=== PATIENT | female | born 1980 | race Caucasian/White ===

== ENCOUNTER 2022-06-25 15:39 | Outpatient (CLI) | payer OTHER, SELFPAY ==
--- NOTE | 2022-06-25 16:00 | CRLHL7_ITS ---
For Patients: As a result of the Century Cures Act, medical imaging exams and procedure reports are released immediately into your electronic medical record. You may view this report before your referring provider. If you have questions, please contact your health care provider. INDICATION: Headache. TECHNIQUE: Noncontrast CT images acquired through the brain. COMPARISON: None. FINDINGS: The ventricles and sulci are within normal limits for patient age. No mass effect or midline shift. The zendejas-white differentiation is maintained. No acute intracranial hemorrhage or pathologic extra-axial fluid collection. The globes are symmetric. The calvarium is intact. Very small right maxillary sinus retention cyst or polyp. The mastoid air cells are clear. IMPRESSION: No acute intracranial hemorrhage or mass effect. Please note that all CT scans at this facility use dose modulation, iterative reconstruction, and/or weight-based dosing when appropriate to reduce radiation dose to as low as reasonably achievable. Dictated by Fabián Montanez MD @ 06/25/2022 4:28:26 PM (Electronically Signed)
== END 2022-06-25 15:40 | disposition home or self-care (01) ==
PROVIDERS: PCP Family Medicine; Visit Provider Family Medicine
DX: F51.9 Sleep disorder not due to a substance or known physiological condition, unspecified (principal); F07.81 Postconcussional syndrome
CPT/HCPCS: 70450

== ENCOUNTER 2022-06-26 21:23 | Emergency (ER) | payer OTHER, SELFPAY ==
[2022-06-26 21:32] VITALS: BP 129/69; PULSE 86; RESP 18; TEMP 36.4; O2SAT 95; BMI 31.1
--- NOTE | 2022-06-26 22:14 | ED.GENADULT ---
HPI - General Adult General Time Seen by Provider: 22:14 Date Seen: 06/26/22 Chief complaint: Headache/Migraine Stated complaint: Increased pain behind eyes and bruising on eyes Time Seen by Provider: 06/26/22 21:38 Source: patient and family Mode of arrival: ambulatory Limitations: no limitations History of Present Illness HPI narrative: 42-year-old female who comes in today with headache and eye pain after head injury a couple weeks ago. He patient at the top of her head on a trailer. No loss of consciousness but prominent swelling in the area. She has continued to have some headaches and memory problems with this although seems to be getting better. However today she noticed some bruising around her eyes and also some shooting pain in her head. She had a head CT yesterday which I reviewed and is negative for acute findings. She called the nurse line and was told to come the emergency department. She denies any blurry vision or double vision, says it hurts to move her eyes from side to side especially with left gaze. She does have some photosensitivity. No fluid from the nose or ears. Related Data Home Medications Medication Instructions Recorded Confirmed escitalopram oxalate 20 mg tablet 20 mg PO QDAY 10/11/21 06/17/22 (Lexapro) norethindrone acetate 1 mg-ethinyl 1 tab PO QDAY 10/11/21 06/17/22 estradiol 20 mcg tablet (Junel) Previous Rx's Medication Instructions Recorded semaglutide 3 mg tablet (Rybelsus) 3 mg PO QDAY 30 days #30 tabs 10/11/21 phentermine 15 mg capsule 15 mg PO QDAY #30 caps 11/19/21 gabapentin 100 mg capsule 100 mg PO TID #90 caps 06/17/22 (Neurontin) Allergies Allergy/AdvReac Type Severity Reaction Status Date / Time Sulfa (Sulfonamide Allergy Unknown unknown Verified 06/17/22 15:02 Antibiotics) latex Allergy Verified 06/26/22 21:32 Review of Systems Status of ROS: Reports: 10 or more systems reviewed and unremarkable except as noted in History and below [facility] Medical History (Updated 06/17/22 @ 15:42 by Deacon Jones MD) Obesity (BMI 30.0-34.9) ?E66.9 - Obesity, unspecified (ICD-10) Social History Smoking Status: Never smoker Do you use any of these nicotine containing products: None Second hand tobacco smoke exposure: No How often do you have a drink containing alcohol: 2-3 times a week How many standard drinks containing alcohol do you have on a typical day: 1 or 2 How often do you have six or more drinks on one occasion: Never AUDIT-C Alcohol total score: 3 Non-prescribed substance use: denies use service: No Exam Narrative: Exam Narrative: General: Well-developed and well-nourished, no acute distress Head: Atraumatic and normocephalic Eyes: Pupils are equal reactive, extraocular motions intact, conjunctiva clear. Very mild ecchymosis medially bilaterally with mild swelling of the or nasal bridge. Mild tenderness of the right parietal area with mild boggy swelling in this area ENT: External nose and ears are normal, posterior pharynx without erythema or exudate Neck: No midline cervical tenderness, full spontaneous range of motion the neck, trachea midline, no adenopathy Heart: Regular rate and rhythm no murmurs or thrills Lungs: Clear to auscultation bilaterally without wheezes or crackles Abdomen: Soft, nontender, nondistended with active bowel sounds Musculoskeletal: No tenderness, deformity, or edema Neurologic: Awake, alert, and oriented x3, no gross focal neurologic deficits, cranial nerves intact as tested Psych: Mood and affect are appropriate Skin: No rashes Const: Vital Signs, click to edit/add: Vital Signs - 24 hr 06/26/22 21:32 Temperature 97.6 F Pulse Rate [Pulse Oximeter] 86 Respiratory Rate 18 Blood Pressure [Ri ght Upper Arm] 129/69 Pulse Oximetry 95 Oxygen Delivery Me thod Room Air Course Course Hospital Course: Patient seen and examined, prior records reviewed. Patient presents today after head injury sustained a couple days ago with some bruising around the eyes as well as shooting pain on the head. On exam, neurologically intact. External ocular movements are intact and pupils are equal and reactive. No evidence for basilar skull fracture on CT scan done yesterday, also no hemotympanum. Bruising around the eyes may be from settling of hematoma of the scalp from a prior injury, also consider subgleal hematoma that is resolving. Discussed post concussive syndrome and warning signs. Discussed follow-up with concussion clinic. Patient stable for discharge. Vital Signs Vital signs: Initial Vital Signs Temperature 97.6 F 06/26/22 21:32 Temperature Source Temporal Artery Scan 06/26/22 21:32 Pulse Rate 86 06/26/22 21:32 Pulse Rhythm Regular 06/26/22 21:32 Respiratory Rate 18 06/26/22 21:32 Blood Pressure 129/69 06/26/22 21:32 Blood Pressure Mean 89 06/26/22 21:32 Pulse Oximetry 95 06/26/22 21:32 Oxygen Delivery Method Room Air 06/26/22 21:32 Vital Signs Temperature 97.6 F 06/26/22 21:32 Pulse Rate 86 06/26/22 21:32 Respiratory Rate 18 06/26/22 21:32 Blood Pressure 129/69 06/26/22 21:32 Pulse Oximetry 95 06/26/22 21:32 Oxygen Delivery Method Room Air 06/26/22 21:32 Temperature 97.6 F 06/26/22 21:32 Pulse Rate 86 06/26/22 21:32 Respiratory Rate 18 06/26/22 21:32 Blood Pressure 129/69 06/26/22 21:32 Pulse Oximetry 95 06/26/22 21:32 Oxygen Delivery Method Room Air 06/26/22 21:32 Medical Decision Making Medical Records Medical records reviewed: Yes I reviewed the patient's medical records Lab Data Lab results reviewed: Yes I reviewed the patient's lab results Discharge Plan Discharge Prescriptions: No Action norethindrone ac-eth estradiol [04/12 ()] 1-20 mg-mcg tablet 1 tab PO QDAY escitalopram oxalate [Lexapro] 20 mg tablet 20 mg PO QDAY Rybelsus 3 mg tablet 3 mg PO QDAY 30 Days Qty: 30 1RF gabapentin [Neurontin] 100 mg capsule 100 mg PO TID Qty: 90 0RF phentermine 15 mg capsule 15 mg PO QDAY Qty: 30 1RF Rx Instructions: must administer 2 hours after breakfast Follow Up/Referrals: Deacon Jones MD [Primary Care Provider] -
--- OUTSIDE RECORDS SUMMARY | 2022-06-26 22:52 | XMS_ITS | Continuity of Care Document ---
Author Name Unknown Organization [facility] Address [address] [address] [place] [address] Phone Care Team Providers Care Welfare Eligibility Worker Name Role Phone Mal ALEXANDRA, Pierre Unavailable Unavailable Allergies, Adverse Reactions, Alerts Substance Reaction Status Criticality Sulfa (Sulfonamide Antibiotics) Unknown Active No Information latex Swelling Active No Information trimethoprim Hives Active No Information sulfamethoxazole Hives Active No Informat ion Medications Medication Instructions Dosage Effective Dates (start - stop) Status Comments hyoscyamine 0.125 mg sublingual tablet take 1 Tablet by Sublingual route every 4 hours as needed 1 Tablet - Active keep on file Claritin 10 mg tablet take 1 tablet by oral route every day as needed - Active Lexapro 20 mg tablet take 1 tablet by oral route every day 20 MG - Active 04/12 (21) 1 mg-20 mcg tablet take 1 tablet by oral route every day 1.00 tablet - Active Procedures Procedure Date Offic/outpt E&m Estab Low-mod 0 Offic/outpt E&m New Mod-in Colonoscopy Flex; W/bx 1/mx Level Iv-surg Path Gross/micro 17 Offic/outpt E&m New Mod-hi Offic Cons New/estab Mod Routine Serum Collection [id number] Advance Directives Directive Yes / No Effective Date File Name No Information Encounters Encounter Description Practice Location Reason(s) For Visit Diagnoses Date Provider Providers Copied on Encounter [facility], [address] [address], [place], [place], [id number], [place] tel:[phone] [facility] No Information 2 Mal Jay. [address] [facility] [address], [place], [place], [address] , [place]. tel: [phone] Offic/outpt E&m Estab Low-mod [facility], [address] [address], [place], [place], [address], [place] tel:[phone] [facility] GI Symptoms or Concerns (chief complaint) Lower abdominal painDietary counseling and surveillance 0 Hasmukh Willett . [address] [facility], [address], [place], [place], [address] , [place]. tel: [phone] Referring Provider: Referral Self. [facility], [address] [address], [place], [place], [address], [place] tel:[phone] [facility] No Information 0 Medhat Byrnes. [address] [facility], [address], [place], [place], [address] , [place]. tel: [phone] Offic/outpt E&m New Mod-hi [facility], [address] [address], [place], [place], [address], [place] tel:[phone] [facility] GI Symptoms or Concerns (chief complaint) Right lower quadrant abdominal pain 0 Hasmukh Willett . [address] [facility], [address], [place], [place], [address] , [place]. tel: [phone] Referring Provider: Referral Self. [facility], [address] [address], [place], [place], [address], [place] tel:[phone] [facility] No Information 0 Mal Jay. [address] [facility] [address], [address], [place], [place], [address] , [place]. tel: [phone] [facility], [address] [address], [place], [place], [address], [place] tel:[phone] [facility] Hemorrhage of anus and rectumInternal hemorrhoidColorec lina polyp detected on colonoscopyFamily history of colonic polypsBenign neoplasm of sigmoid colonFamily history of colonic polypsHemorrhage of anus and rectumOther hemorrhoids 7 Hasmukh Willett . [address] [facility], [facility] [address], [place], [place], [address] , [place]. [phone] Referring Provider: Referral Self. Offic/outpt E&m New Mod-hi [facility], [address] [address], [place], [id number], [place] tel:[phone] [facility] GI Symptoms or Concerns (chief complaint) Rectal bleedingFamily history of colonic polypsDietary counseling and surveillance 7 Hasmukh Willett . [address] [facility], [facility] [address], [place], [place], [address] , [place]. [phone] Referring Provider: Referral Self. Offic Cons New/estab Mod [facility], [address] [address], [place], [address], [place] tel:[phone] [facility] Abdominal pain (chief complaint) Rectal bleeding (chief complaint) Change In Bowel Habits 0 Jhonathan Baker. [address] [facility], [facility] [address], [place], [place], [address] , [place]. [phone] Referring Provider: Bhargavi Noel MD R, [address] [facility] [address], [place], [address]. tel:[phone] Family History Family Member Type Diagnosis Age At Onset Son Problem (finding) asthma Brother Problem (finding) ulcerative colitis Brother Problem (finding) Crohn's disease First degree family history Problem (finding) Crohn's Father Problem (finding) Colon polyps Mother Problem (finding) Alive and well Immunizations Vaccine Date Status Comments Seasonal, quadrivalent, recombinant, injectable influenza vaccine, preservative free administered Note: [facility] bi-direct ional interface ; Source: Other Registry Influenza administered Note: [facility] bi-d irectional interface ; Source: Other Registry Afluria Qd administered Note: [facility] bi-directional interface ; Source: Other Registry Fluzone Quad 6mo or older administered Note: [facility] bi-direct ional interface ; Source: Other Registry Afluria Qd administered Note: [facility] bi-directional interface ; Source: Other Registry Fluzone Quad 6mo or older administered Note: [facility] bi-direct ional interface ; Source: Other Registry Influenza, injectable, quadrivalent, preservative free, 3 yrs or older administered Note: Invalid docum ented admin date was . ; Source: Other Provider Afluria Qd administered Note: [facility] bi-directional interface ; Source: Other Registry Fluzone Quad 6mo or older administered Note: [facility] bi-direct ional interface ; Source: Other Registry Influenza, seasonal, injectable administe red Note: [facility] bi- directional interface ; Source: Other Registry Payers Payer name Insurance type Covered constitution party ID Authoriza timaira(s) [employer] [facility] [id number] Social History Type Description Quantity Date Captured Comments Sex Female Smoking Status No Information Chief Complaint And Reason For Visit No Information Reason For Referral Reason For Referral No Information Plan Of Treatment Date Type Action Status Goal Lifestyle education regardin g diet completed Goal Lifestyle education regardin g diet completed Referral Ordered: MRI Enterography WITHOUT And WITH Contrast Appointment date/timeframe: 12/21/2019 ordered Referral Ordered: follow-up visit 2 Months Appointment date/timeframe: 2 Months ordered History Of Present Illness Encounter Date Complaint History Of Prese nt Illness GI Symptoms or Concerns This is a 40-year-old woman who presents in followup. I last saw her in November. She has been experiencing some new lower abdominal pain, particularly on the right side. She also experiences some intermittent rectal bleeding. She has a family history of ulcerative colitis and was concerned for inflammatory disease. Prior colonoscopy in 2016 had shown a polyp and internal hemorrhoids. We had discussed whether or not to proceed with a colonoscopy. However, since the symptoms were so episodic, we elected to proceed with MR enterography to evaluate for inflammatory disease in the terminal ileum. Thankfully, this study was normal. Interestingly, she has had some improvement when she uses hyoscyamine antispasmodic. She has also started a keto diet and lost 20 pounds in the past 1 or 2 months. She notices that the pain typically increases before passage of the stool. If she skips a day without having a bowel movement, this is not bothersome to her. Symptoms seem to worsen with bro GI Symptoms or Concerns This is a 39-year-old woman, who presents as a self-referral for new abdominal symptoms. She has a family history of ulcerative colitis in her brother. I have seen her in the past for some rectal bleeding attributed to hemorrhoids. She reports having intermittent abdominal symptoms overtime. More recently, she has felt excruciating pain in the right lower quadrant. This occurs episodically, about once every 1 to 2 months. She has milder episodes about every 3 weeks. She has not identified a clear dietary trigger. Sometimes she feels it can occur if she has not had a good bowel movement the day before. Typically, the episodes are so severe that she has near-syncope and then hot sweats. She will often pass a solid stool followed by repetitive diarrhea. There can be a sense of pressure and pain in the rectal area as well. She likens her symptoms to labor pains, and she has not found there to be a specific diet that helps. She tried a gluten-free diet, which was ineffective. 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 This happened one week ago. She had three days of bleeding that was painless. There was over one spoonful of blood each time she had a bowel movement. The water was colored with blood as well. She denies any recent trauma to the area or perianal symptoms. She has had intermittent small amounts of blood in the past with wiping, but nothing like what she experienced last week. There is a dull discomfort in her abdomen. There is no change in stool caliber. The discomfort can be on and off over time and does not correlate with eating or stooling. She feels a little tired. She reports normal labs in early March, but none performed recently. She denies any joint swelling, although has had occasionally papules on her abdomen and then over her hand joints, that come and go over time. Her mother had colon polyps diagnosed at age 62. Her brother was diagnosed with ulcerative colitis and had a total proctocolecto Functional Status Date Functional Assessmen t No Information Instructions Date Instruction Additional Infor maite I would like her to journal foods and abdominal symptoms together with bowel habits to see if there any obvious trends. We will continue hyoscyamine antispasmodic. We discussed ways of maintaining her lower weight when she stops the keto diet. This includes developing an exercise regimen for strengthening, to boost metabolic rate, and working on some problematic behaviors that she may have at home with regard to eating. We agreed to follow up in a couple of months to review her progress. Certainly, if she has worsening symptoms or recurrent bleeding, we should consider another colonoscopy. Related to Lower abdominal pain Lifestyle education regarding di et Related to Dietary counseling and surveillance I would like to perf orm an MR enterography to evaluate for Crohn''s disease in the terminal ileum. She is long and young and I would prefer to avoid radiation exposure. This will help to evaluate for inflammatory disease and also give some degree of imaging of her sacroiliac joint. In the meanwhile, we will initiate a trial of hyoscyamine antispasmodic to see if that is helpful at aborting attacks of pain. She will also journal food intake, stools, and abdominal symptoms to see if there is no obvious trend. I would like to see her in followup in 2 months. Related to Right lower quadrant abdominal pain High Fiber Diet Related to Inter nal hemorrhoid Colon Cancer Prevention Related to Internal hemorrhoid Colon Polyps Related to Inter nal hemorrhoid Hemorrhoids Related to Inter nal hemorrhoid We will proceed with colonoscopy to include evaluation of the terminal ileum. We discussed the possible need for sigmoidoscopy, but given the chronic nature of low-grade abdominal symptoms, we agreed for a full colon evaluation, especially with a family history of polyps. If there is inflammatory disease found on exam, then I would definitely recommend followup in clinic. If there are hemorrhoids, she has the choice to consider hemorrhoid banding, although this is not required either. Further recommendations will follow the above. Related to Rectal bleeding Lifestyle education regarding di et Related to Dietary counseling and surveillance Colonoscopy Hemorrhoids Related to Recta l bleeding Hemorrhoid Banding Related to Re ctal bleeding Assessments Type Assessment Date No Information Patient Care Teams Name Effective Dates (start - stop) Status Members No Information
--- OUTSIDE RECORDS SUMMARY | 2022-06-26 22:52 | XMS_ITS | Continuity of Care Document ---
Author Name Unknown Organization [facility] Address [address] [address] [place] [address] Phone Care Team Providers Care Head Pumper Name Role Phone Mal ALEXANDRA, Pierre Unavailable [...] E&m Estab Low-mod 0 Offic/outpt E&m New Mod-nv Colonoscopy Flex; W/bx 1/mx Level Iv-surg Path Gross/micro 17 Offic/outpt E&m New Mod-hi Offic Cons New/estab Mod Routine Serum Collection [id number] Advance Directives Directive Yes / No Effective Date File Name No Information Encounters Encounter Description Practice Location Reason(s) For Visit Diagnoses Date Provider Providers Copied on Encounter [facility], [address] [address], [place], [place], [address], [place] tel:[phone] [facility] No Information 2 Mal Jay. [address] [facility] [address], [place], [place], [address] , [place]. tel: [phone] Offic/outpt E&m Estab Low-mod [facility], [address] [address], [place], [place], [address], [place] tel:[phone] [facility] GI Symptoms or Concerns (chief complaint) Lower abdominal painDietary counseling and surveillance 0 Hasmukh Willett . [address] [facility], [address], [place], [place], [address] , [place]. tel: [phone] Referring Provider: Referral Self. [facility], [address] [address], [place], [place], [address], [place] tel:[phone] [facility] No Information 0 Medhat Byrnes. [address] [facility], [address], [place], [place], [address] , [place]. tel: [phone] Offic/outpt E&m New Mod-hi [facility], [address] [address], [place], [place], [address], [place] tel:[phone] [facility] GI Symptoms or Concerns (chief complaint) Right lower quadrant abdominal pain 0 Hasmukh Willett . [address] [facility], [address], [place], [place], [address] , [place]. tel: [phone] Referring Provider: Referral Self. [facility], [address] [address], [place], [place], [address], [place] tel:[phone] [facility] No Information 0 Mal Jay. [address] [facility] [address], [address], [place], [place], [address] , [place]. tel: [phone] [facility], [address] [address], [place], [place], [address], [place] tel:[phone] [facility] Hemorrhage of anus and rectumInternal hemorrhoidColorec lina polyp detected on colonoscopyFamily history of colonic polypsBenign neoplasm of sigmoid colonFamily history of colonic polypsHemorrhage of anus and rectumOther hemorrhoids 7 Hasmukh Willett . [address] [facility], [facility] [address], [place], [place], [address] , [place]. [phone] Referring Provider: Referral Self. Offic/outpt E&m New Mod-hi [facility], [address] [address], [place], [id number], [place] tel:[phone] [facility] GI Symptoms or Concerns (chief complaint) Rectal bleedingFamily history of colonic polypsDietary counseling and surveillance 7 Hasmukh Willett . [address] [facility], [facility] [address], [place], [place], [address] , [place]. [phone] Referring Provider: Referral Self. Offic Cons New/estab Mod [facility], [address] [address], [place] [address], [place] tel:[phone] [facility] Abdominal pain (chief complaint) Rectal bleeding (chief complaint) Change In Bowel Habits 0 Jhonathan Baker. [address] [facility], [facility] [address], [place], [place], [address] , [place]. [phone] Referring Provider: Bhargavi Noel MD R, [address] [facility] [address], [place], [address]. 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 This happened [...]
== END 2022-06-26 22:50 | disposition home or self-care (01) ==
LOC: ED 22:50
PROVIDERS: Emergency Provider Family Medicine; PCP Family Medicine
DX: F07.81 Postconcussional syndrome (principal)
CPT/HCPCS: 99283

== ENCOUNTER 2022-07-24 09:00 | Outpatient (CLI) | payer OTHER, BC, SELFPAY ==
--- NOTE | 2022-07-24 09:15 | CRLHL7_ITS ---
For Patients: As a result of the Century Cures Act, medical imaging exams and procedure reports are released immediately into your electronic medical record. You may view this report before your referring provider. If you have questions, please contact your health care provider. EXAMINATION: MRI BRAIN DATE: 07/24/2022 HISTORY: Patient with head trauma, concussion. TECHNIQUE: Multi-sequence, multiplanar MRI examination of the brain was performed. COMPARISON: CT 06/25/2022 FINDINGS: There is no restricted diffusion in the brain to indicate the presence of acute ischemia. The T2 and FLAIR images are normal. The ventricular size is normal. The orbits are unremarkable. The paranasal sinuses are unremarkable. The mastoid air cells are clear. The calvarium is unremarkable. IMPRESSION: Normal brain MRI. Dictated by: Thomas Romo MD @ 07/24/2022 21:21:11 (Electronically Signed)
== END 2022-07-24 09:01 | disposition home or self-care (01) ==
LOC: MRI 09:02
PROVIDERS: PCP Family Medicine; Visit Provider Family Medicine
DX: F07.81 Postconcussional syndrome (principal); R51.9 Headache, unspecified
CPT/HCPCS: 70551

== ENCOUNTER 2023-04-25 09:00 | Outpatient (RCR) | payer OTHER, BC, SELFPAY | END 2023-08-23 23:59 | disposition home or self-care (01) | PROVIDERS: PCP Family Medicine; Visit Provider Orthopaedic Surgery | DX: M54.2 Cervicalgia (principal); R51.9 Headache, unspecified; I51.9 Heart disease, unspecified; Z51.89 Encounter for other specified aftercare | CPT/HCPCS: 97032; 97110; 97112; 97140; 97162; 97535 ==

== ENCOUNTER 2023-05-02 10:45 | Outpatient (RCR) | payer OTHER, BC, SELFPAY ==
--- NOTE | 2022-08-29 09:30 | PT.OPDN ---
PT Alejandrina Outpatient Daily Note PT SANCHEZ Outpatient Daily Note Start: 07/02/22 11:19 Freq: Status: Active Protocol: Document 08/27/22 12:06 BMS (Rec: 08/27/22 23:40 BMS [id number]) E-signed By Era Liz, PT PT OP Daily Progress Note Visit Information Note Type Daily Note,Recert/Progress Note Visit Number [id number] Insurance Information Recert Due Date 09/29/22 Insurance Name Workman's Comp Insurance Information/Comments [place] risk Medical Diagnosis postconcussional syndrome F07. 81 Treating Diagnosis concussion F07.81 cervicalgia M54.2 headache R51.9 vestibular dysfunction H81.93 Referring MD Karen ALEXANDRA Precautions Treatment Precautions/Contraindications hx anxiety, seasonal depression Objective Other/Pertinent Objective vitals checks Seated 123/72 SpO2 96%, HR 79 Treadmill self selected speed 2.4-3.5 mph 2:40 symptom BONILLA 3/ 10, 114/75, recovered to 118/ 75 BONILLA to 0-1/10, Resume x 3:17 increased BONILLA 6/ 10 brain feels full. Inc HR to 109, 111/69 SpO2 94% recovery: seated to 125/75, SpO2 97%, HR 82 Patient Instructed in Risks/Benefits Yes Therapeutic Exercise Therapeutic Exercise Minutes (minutes) 33 Therapeutic Exercise: To Restore Bike 5.0 x 9 min vitals checks Functional Status Seated 123/72 SpO2 96%, HR 79 Treadmill self selected speed 2.4-3.5 mph 2:40 symptom BONILLA 3/ 10, 114/75, recovered to 118/ 75 BONILLA to 0-1/10, Resume x 3:17 increased BONILLA 6/ 10 brain feels full. Inc HR to 109, 111/69 SpO2 94% Manual Therapy Techniques Manual Therapy Minutes (minutes) 18 Manual Therapy Techniques 15 min recovery w feet up and gently MT to neck Treatment Minutes Timed Code Treatment Minutes 51 Total Treatment Time 51 Billing Units Manual Therapy Units 1 Therapeutic Exercise Units 2 Assessment/Impression Assessment/Impression as patient has demonstrated increasing tolerance of exercise in terms of duration with moderate strengthening did assess response today to increasing cardio load on her symtpoms both subjectively and through vitals assessment. She did demo autonomic dysregulation deom by drop in BP and increase in subjective symptom intensity correlated with increased duration and intensity of cardioload. Able to decrease symptoms x 50% from highest reported subjective with LE elevation and gentle MT provided. 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 Plan of Care Physical Therapy Goals 1) Pt report decreased head pressure/ headaches <=3/10 with provocative motions 2) Pt report ability to drive with necessary cervical rotation, cspine stability ROM without increased symptoms. 3) Pt demo convergence to 4-6 without symptoms consistently to allow rapid changes from distance to near vision. 4) Pt demo improved balance and agility sufficient to train with and handle K9. 5) Pt return to work at 50% capacity (reduced hours, load, poss desk vs field) to allow habituation and adaptation in real world environment. 6) Pt tolerate 1 hour on screen for return to work. Daily Plan of Care Continue per POC Daily Plan of Care Comments ongoing POC to consist of manual therapy, estim/TENS, poss traction for cervicalgia/ cervicogenic portion of headaches, vestibular rehab, assess poss vertigo/positional vertigo, functional strength, agility, multitasking, habituation and adaptation.
--- NOTE | 2022-10-30 16:02 | PT.OPDN ---
PT Alejandrina Outpatient Daily Note PT SANCHEZ Outpatient Daily Note Start: 07/02/22 11:19 Freq: Status: Active Protocol: Document 10/30/22 15:41 BMS (Rec: 10/30/22 15:55 BMS [email or web address]) E-signed By Era Liz, PT PT OP Daily Progress Note Visit Information Note Type Daily Note,Recert/Progress Note Visit Number [id number] Insurance Authorized Visits 25 Insurance Information Insurance Name Workman's Comp Insurance Information/Comments [place] risk Medical Diagnosis postconcussional syndrome F07. 81 Treating Diagnosis concussion F07.81 cervicalgia M54.2 headache R51.9 vestibular dysfunction H81.93 Referring MD Karen ALEXANDRA Subjective Subjective head fullness and fog better today after what we did yesterday. The hands on work makes it feel like I can manage the rest. Headache low now maybe 1-2/10. head fullness like 5/10, dizzy like 1/10 L neck better after yest but did get sore. feel good with the exercises will work on them on vacation Precautions Treatment Precautions/Contraindications hx anxiety, seasonal depression Home Exercise Home Exercise Comments Access Code: [email or web address] URL: [email or web address] Date: 10/23/2022 Prepared by: Era Liz Exercises - Supine Chin Tuck - 1 x daily - 5 x weekly - 1-3 sets - 10-20 reps - 5-10 sec hold - Prone Scapular Slide with Shoulder Extension - 1 x daily - 5 x weekly - 1-3 sets - 10-20 reps - 5-10 sec hold - Prone Scapular Retraction Arms at Side - 1 x daily - 5 x weekly - 1-3 sets - 10-20 reps - 5-10 sec hold - Prone Y Scapular Retraction - 1 x daily - 5 x weekly - 1- 3 sets - 10-20 reps - 5-10 sec hold -prone birddog x 10 each side Objective Other/Pertinent Objective CROM: ext results in 10 degree R deviation. L rotation increased headache L eye 70, R 85 recreates pain in religious MMT cervical 5/5 with increased pain w L SB and extension. R SB T2-C6. + R horizontal nystagmus noted with head movements. FROM 10/24/22 REST: BP 115/78, HR 92 bpm, SpO2 96%. RPE 6, VAS 5/10 AFTER bike 5 min at 5.0 resist -- HR 88bpm, SpO2 96%, BP 122 /76 RPE up to 14 but VAS still 5. after 10 min total ex HR 121 bpm, VAS 5, RPE 17, BP 125/85 and reports of increased concussion symptomsl Patient Instructed in Risks/Benefits Yes Therapeutic Exercise Therapeutic Exercise Minutes (minutes) 15 Therapeutic Exercise: To Restore TODAY: added bowhunter ( Functional Status cervical/thoracic rotation from sidelying. Patient finally able to tolerate this combined motion with vestibular component. -chin tucks 2 x 10 with graded pressure -UT stretches -rotational stretches with gentle pressure Manual Therapy Techniques Manual Therapy Minutes (minutes) 15 Manual Therapy Techniques STM performed to B cervical paraspinals, scalenes, UT, levator, rhomboids, and thoracic paraspinals to reduce tissue tension and improve extensibility. also sidelying clearing to B scapulae, perithoracic regions as well as UT levator and scalene MFR Neuromuscular Re-Ed Neuromuscular Reeducation Minutes ( 23 minutes) Neuromuscular Reeducation Comments -NIDIA hallpike b, horizontal testing. + R in symtpoms and increased nystagmus -R BBQ -instruct in and handout from [facility] issued for Lobo with instruct for self assess on vacation when away from rehab care including safe testing -midline ascertainment as well as maintenance after approximation through cspine in supine. place and hold, approximation after finding midline Midline finding in standing in mirror also Treatment Minutes Timed Code Treatment Minutes 53 Total Treatment Time 53 Billing Units Manual Therapy Units 1 Neuromuscular Reeducation Units 2 Therapeutic Exercise Units 1 Assessment/Impression Assessment/Impression Patient has been diligent with participating in activity and exercise as well as vestibular challenges. Unfortunately, her symptoms are still fluctuating an her system is often overloaded with external stimuli following head/neck injury while exiting trailer at work. Una is participating also in speech therapy, vision therapy and poss occupational therapy in addition to maintaining home and caring for her teenage special needs twins, so modifying external stimuli is not always feasible . She has had several sessions in which we were able to push harder before hitting the end point, however she also has times when her symptoms prevent her from performing cognitive tasks with gait, word finding when overstimulated is impaired, she is uncomfortable driving due to symptoms and overload per patient and continues to adopt sunglasses in most multitasking or exercise situations. Primary c/o today is pain in B neck, mild headache initially, moderate head 'fullness' that does at times equate to vestibular symptoms. Did perform [place] concussion treadmill testing a bit ago, did not note the blood pressure drop and significant symptoms DURING the test this time however she did have significant increase the following evening and day . Patient is appropriate for ongoing skilled physical therapy as we continue to work toward her goals of headache/ neck pain management, return to multitasking, vestibular and visual combined activities as would be needed for return to work as [employer], improved exercise and activity tolerance to be able to participate in family events without hiding in the basement due to noise and visual stimuli, to be able to participate in outdoor activities with her teenaged children, to resume driving if appropriate and to manage running household successfully . Autonomic dysfunction manifesting as a drop in blood pressure accompanied by symptomatic response from sympathetic nervous system has been identified in previous sessions through monitoring of vitals during both bike and treadmill testing. Plan of Care Physical Therapy Goals 1) Pt report decreased head pressure/ headaches <=3/10 with provocative motions 2) Pt report ability to drive with necessary cervical rotation, cspine stability ROM without increased symptoms. 3) Pt demo convergence to 4-6 without symptoms consistently to allow rapid changes from distance to near vision. 4) Pt demo improved balance and agility sufficient to train with and handle K9. 5) Pt return to work at 50% capacity (reduced hours, load, poss desk vs field) to allow habituation and adaptation in real world environment. 6) Pt tolerate 1 hour on screen for return to work. Daily Plan of Care Continue per POC Daily Plan of Care Comments ongoing POC to consist of manual therapy, estim/TENS, poss traction for cervicalgia/ cervicogenic portion of headaches, vestibular rehab, assess poss vertigo/positional vertigo, functional strength, agility, multitasking, habituation and adaptation. Recertification Information Initial Certification Date 07/02/22 Recertification Start Date 10/31/22 Reasons to Continue Skilled Therapy see assess portion Rehabilitation Potential fair to good, due to ongoing response and variablity of response to external and internal stimuli as well as participation in multiple therapies (speech, vision, PT) Continued Plan of Care and Interventions ther ex, neuro jodie, vestibular training, functional training, lifting, push pull etc, work on ex tolerance through cardio and strength, balance and gait. maybe appropriate for work conditioning or work hardening in future but not at this date Provider Signature Shows Agreement With POC & Medical Necessity Physician Comment/Change Comment or Changes Physician NPI Number #
== END 2023-08-30 23:59 | disposition home or self-care (01) ==
PROVIDERS: PCP Family Medicine; Visit Provider Family Medicine
DX: F07.81 Postconcussional syndrome (principal); Z51.89 Encounter for other specified aftercare
CPT/HCPCS: 97032; 97110; 97112; 97140; 97162; 97163; 97530; 97535

== ENCOUNTER 2023-06-13 10:27 | Outpatient (CLI) | payer BC, SELFPAY ==
--- NOTE | 2023-06-13 10:45 | MM_ITS ---
Patient: EMA ASHTON Facility:?[facility] Patient ID:?[id number] Site Patient ID:?[id number] Site :?1980 Study:?XRay-Breast Bilateral 3D-06/13/2023 11:07:56 AM Ordering Physician:Jie Final Report: DIGITAL DIAGNOSTIC BILATERAL MAMMOGRAM USING TOMOSYNTHESIS AND COMPUTER-AIDED DETECTION BILATERAL AXILLARY ULTRASOUND CLINICAL HISTORY: BILATERAL breast lumps. COMPARISON: None. TECHNIQUE: Digital BILATERAL mammogram in four projections. Tomosynthesis and CAD utilized. Real-time ultrasound imaging of BILATERAL axilla with imaging documentation. BREAST COMPOSITION: There are areas of scattered fibroglandular density. FINDINGS: 3D CC/MLO BILATERAL mammogram images submitted. No suspicious masses or architectural distortion. Normal-appearing axillary lymph nodes. No suspicious calcifications. Targeted BILATERAL axillary ultrasound performed. Normal axillary lymph nodes are present with normal central fatty jose. No abnormal vascularity. Thin overlying cortices noted. IMPRESSION: No suspicious findings. No evidence of malignancy or abscess. No adenopathy. RECOMMENDATIONS: Clinical follow-up. Routine screening mammography. Results and recommendations discussed with the patient. BI-RADS Category 2: Benign A lay language report of this examination will be provided to the patient. Dictated by Hu Holbrook MD @ 06/13/2023 11:40:17 AM j/Dictated by: Hu Holbrook MD @ 06/13/2023 11:40:00 AM Signed by:?Hu Holbrook MD @06/13/2023 12:16:37 PM (Electronic Signature)
--- NOTE | 2023-06-13 11:15 | US_ITS ---
Patient: EMA ASHTON Facility:?[facility] Patient ID:?[id number] Site Patient ID:?[id number]. Site :?1980 Study:?US-Breast Left LT AXILLA-06/13/2023 2:13:52 PM Ordering Physician:?GLENNA GA Final Report: PLEASE SEE DIGITAL DIAGNOSTIC BILATERAL MAMMOGRAM PERFORMED SAME DAY CRL:valentina montgomery/Dictated by: Hu Holbrook MD @ 06/16/2023 3:53:00 PM Signed by:?Hu Holbrook MD @06/16/2023 4:02:38 PM (Electronic Signature)
--- NOTE | 2023-06-13 11:30 | US_ITS ---
Patient: EMA ASHTON Facility:?[facility] Patient ID:?[id number] Site Patient ID:?[id number]. Site :?1980 Study:?US-Breast Right RT AXILLA-06/13/2023 2:13:10 PM Ordering Physician:?GLENNA GA Final Report: PLEASE SEE DIGITAL DIAGNOSTIC BILATERAL MAMMOGRAM PERFORMED SAME DAY CRL:valentina montgomery/Dictated by: Hu Holbrook MD @ 06/16/2023 3:53:00 PM Signed by:?Hu Holbrook MD @06/16/2023 4:02:45 PM (Electronic Signature)
== END 2023-06-13 10:28 | disposition home or self-care (01) ==
PROVIDERS: PCP Family Medicine; Visit Provider Nurse Practitioner Family
DX: N64.4 Mastodynia (principal)
CPT/HCPCS: 76882; 77066; G0279

== ENCOUNTER 2023-08-26 09:44 | Outpatient (CLI) | payer BC, SELFPAY | END 2023-08-26 09:45 | disposition home or self-care (01) | LOC: NFLDREF 08-30 15:10 | PROVIDERS: PCP Family Medicine; Referring Provider Family Medicine; Visit Provider Family Medicine | DX: R10.9 Unspecified abdominal pain (principal); Z13.228 Encounter for screening for other metabolic disorders; Z13.220 Encounter for screening for lipoid disorders | CPT/HCPCS: 80053; 80061; 82150; 83690; 87086 ==

== ENCOUNTER 2023-09-15 07:03 | Outpatient (CLI) | payer BC, SELFPAY ==
--- OUTSIDE RECORDS SUMMARY | 2023-09-15 07:05 | XMS_ITS | Encounter Summary ---
Author Organization [facility] Address [address] [place] [address] Phone Care Team Providers Care Fire Control Assistant Name Role Phone Caron Newton [facility] Unavailable Unavailab Shahana Owen MD Unavailable [phone] Encounter Details Date Type Department Care Team (Latest Contact Info) Description 08/25/2023 Travel Social History Tobacco Use Types Packs/Day Years Used Date Smoking Tobacco: Never Passive Smoke Exposure: Never Smokeless Tobacco: Never Alcohol Use Standard Drinks/Week Comments Yes 0 (1 standard drink = 0.6 oz pur e alcohol) occasional PHQ-2 Answer Date Recorded PHQ-2 Subtotal 3 01/03/2023 Sex and Gender Information Value Date Recorded Sex Assigned at Not on file Gender Identity Not on file Sexual Orientation Not on file documented as of this encounter Plan of Treatment Upcoming Encounters Date Type Department Care Team (Late st Contact Info) Description 09/16/2023 8:00 AM CDT Office Visit [facility] 1 [facility] [address] [place], [place] [phone] Champ Buitrago PsyD, SARA 701 [facility] [address] [place] [address] Room, Construction Project Administrator Waiting [facility] [address] [place] [address] Scheduled Discharge Disposition: Discharged to home or self care (routine discharge) 09/24/2023 10:20 AM CDT Telemedicine [facility] [place] [address] [place] [address] Shahana Florence MD [address] [place] [id number] Scheduled Discharge Disposition: Discharged to home or self care (routine discharge) 10/06/2023 10:00 AM CDT [facility] [address] [address] Beau Mcpherson MBBS [address] [phone] Scheduled Discharge Disposition: Discharged to home or self care (routine discharge) documented as of this encounter Visit Diagnoses Not on filedocumented in this encounter Additional Health Concerns Assessment Noted Time PHQ-9 Depression Total Score: 15 023 1:21 PM CDT PHQ-2 Depression Total Score: 3 01/04/20 23 1:21 PM CDT documented as of this encounter Care Teams Fire Control Assistant Relationship Specialty Start Date End Date Caron Newton, MARIAMA CCC [address] [place] [address] Speech Pathologist Speech Pathology 09/26/22 Shahana Florence MD [address] [place] [address] Psychiatrist Outpatient Psychiatry 02/19/23 documented as of this encounter
--- OUTSIDE RECORDS SUMMARY | 2023-09-15 07:05 | XMS_ITS | Encounter Summary ---
Author Organization [facility] Address [address] [place] [address] Phone Care Team Providers Care Retail Tire Sales Manager Name Role Phone Caron Newton [facility] Unavailable Unavailab Shahana Owen MD Unavailable [phone] Reason for Visit * Reason Onset Date Comments Refill Request 08/21/2023 emgality Encounter Details Date Type Department Care Team (Late st Contact Info) Description 08/21/2023 Refill [facility] [address] [place] [phone] Beau Mcpherson MBBS [address] [phone] Refill Request (emgality) Social History Tobacco Use Types Packs/Day Years [...] on file documented as of this encounter Miscellaneous Notes * Telephone Encounter - Shavonne Betancourt RN - 08/21/2023 4:02 PM CDT D: Medication Refill Request: Medication: Requested Prescriptions Pending Prescriptions Disp Refills EMGALITY 120 MG/ML subcutaneous pen [Pharmacy Med Name: Emgality Subcutaneous Solution Auto-injector 120 MG/ML] 1 mL 0 Sig: Inject 1 mL (120 mg) subcutaneously every month.Take once per month Last Refilled: 08/01/23 with 30 day supply. For titrated medications, current dose/number of pills patient is taking: N/A Comments re: frequency, dose, gaps in medication: N/A Refill Protocol: No Previous Order Last Clinic Office Visit: 07/16/23 Per MARLEY: Was told that she can gradually taper gabapentin to see if it's helping with headache.. Sumatriptan as needed. Emgality has been helping with intensity Next Scheduled Office Visit: 08/25/23 A: Required Monitoring: Not Applicable R/P: Refill Prescription: Routed: Medication is controlled or not on refill protocol and Medication Refill Protocol is due ornot listed in the health maintenance (order pended) Shavonne Betancourt, RN, 08/21/2023 4:02 PM documented in this encounter Plan of Treatment Upcoming Encounters Date Type Department Care Team (Late st Contact Info) Description 09/16/2023 8:00 AM CDT Office Visit [facility] 701 [facility] [address] [place], [place] [address] Champ Buitrago, Toro, LP 701 [facility] [address] [place], [place] [phone] Room, Veterinary Technology Instructor Waiting [facility] [address] [place] [address] Scheduled Discharge Disposition: Discharged to home or self care (routine discharge) 09/24/2023 10:20 AM CDT Telemedicine [facility] [place] [address] [place] [address] Shahana Florence MD [address] [place], [place] [address] Scheduled Discharge Disposition: Discharged to home or self care (routine discharge) 10/06/2023 10:00 AM CDT [facility] [address] [place] [address] Beau Mcpherson MBBS 701 [facility] [address] [place] [address] Scheduled Discharge Disposition: Discharged to home or self care (routine discharge) documented as of this encounter Visit Diagnoses Not on filedocumented in this encounter Additional Health Concerns Assessment Noted Time PHQ-9 Depression Total Score: 15 023 1:21 PM CDT PHQ-2 Depression Total Score: 3 01/04/20 23 1:21 PM CDT documented as of this encounter Care Teams Retail Tire Sales Manager Relationship Specialty Start Date End Date Caron Newton, MARBLE INSTALLER [facility] [address] [place] [address] Speech Pathologist Speech Pathology 09/26/22 Shahana Florence MD [address] [place] [address] Psychiatrist Outpatient Psychiatry 02/19/23 documented as of this encounter
--- OUTSIDE RECORDS SUMMARY | 2023-09-15 07:05 | XMS_ITS | Encounter Summary ---
Author Organization [facility] Address [address] [place] [address] Phone Care Team Providers Care Docking Saw Operator Name Role Phone Caron Newton [facility] Unavailable Unavailab Shahana Owen MD Unavailable [phone] Reason for Visit * Reason Comments Prior Authorization For Medications PM&R Botox PA request Encounter Details Date Type Department Care Team (Latest Contact Info) Description 08/26/2023 Documentation Only [facility] [address] [phone] Beau Mcpherson MBBS [address] [phone] Prior Authorization For Medications (PM&R Botox PA request) Discharge Disposition: Discharged to home or self care (routine discharge) Social History Tobacco Use Types Packs/Day Years [...] on file documented as of this encounter Progress Notes * Alicia Meyer PSC - 08/26/2023 8:43 AM CDT Date: 08/26/2023 Patient Name: Una Alvarez Medication Prescribed: Botox Injection Diagnosis: Chronic migraine without aura without status migrainosus, not intractable [G43.709] Migraine -155 units Every 12 weeks Referring provider: Date of last office visit (DOS) : 08/25/23 Routed to: P PHARMACY REVENUE TEAM POOL Yes Comments: Alicia Meyer PSC, 08/26/2023 8:44 AM documented in this encounter Plan of Treatment Upcoming Encounters Date Type Department Care Team (Late st Contact Info) Description 09/16/2023 8:00 AM CDT Office Visit [facility] [address] [facility] [address] [place] [address] Champ Buitrago, Toro, LP 701 [facility] [address]8 [place], [place] [phone] Room, Slate Splitting Supervisor Waiting [facility] [address] [place] [address] Scheduled Discharge Disposition: Discharged to home or self care (routine discharge) 09/24/2023 10:20 AM CDT Telemedicine [facility] [place] [address] [place] [address] Shahana Florence MD [address] [place] [address] Scheduled Discharge Disposition: Discharged to home or self care (routine discharge) 10/06/2023 10:00 AM CDT [facility] [address] [address] Beau Mcpherson MBBS 701 [facility] [address] [place] [address] Scheduled Discharge Disposition: Discharged to home or self care (routine discharge) documented as of this encounter Visit Diagnoses Not on filedocumented in this encounter Additional Health Concerns Assessment Noted Time PHQ-9 Depression Total Score: 15 023 1:21 PM CDT PHQ-2 Depression Total Score: 3 01/04/20 23 1:21 PM CDT documented as of this encounter Care Teams Docking Saw Operator Relationship Specialty Start Date End Date Caron Newton, DIESEL ENGINE II PIPE FITTER CCC [address] [place] [address] Speech Pathologist Speech Pathology 09/26/22 Shahana Florence MD [address] [place], [place] [phone] Psychiatrist Outpatient Psychiatry 02/19/23 documented as of this encounter
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
--- OUTSIDE RECORDS SUMMARY | 2023-09-15 07:05 | XMS_ITS | Encounter Summary ---
Author Organization [facility] Address [address] [place] [address] Phone Care Team Providers Care Orthopedic Coder Name Role Phone Caron Newton [facility] Unavailable Unavailab Shahana Owen MD Unavailable [phone] Reason for Visit * Reason Comments Form - Other [facility] Encounter Details Date Type Department Care Team (Latest Contact Info) Description 07/17/2023 Documentation Only [facility] [address] [phone] Beau Mcpherson MBBS [address] [phone] Form - Other ([facility] ) Social History Tobacco Use Types Packs/Day Years [...] as of this encounter Progress Notes * Nia Fontanez CMA - 07/17/2023 8:30 AM CDT Form: [facility] Provider: Dr. Beau Mcpherson MD Date Arrived: 07/17/2023 Arrival Method: Fax Date delivered to provider: 07/17/2023 Due Date:07/24/23 Completed Form Instructions: Fax when completed to [facility] at [phone]. documented in this encounter Plan of Treatment Upcoming Encounters Date Type Department Care Team (Late st Contact Info) Description 09/16/2023 8:00 AM CDT Office Visit [facility] Psychology 701 [facility] [address] [place] [address] Champ Buitrago PsyD, LP 701 [facility] O8 [place], [place] [address] Room, Vending Route Servicer Waiting [facility] 701 [place] [address] Scheduled Discharge Disposition: Discharged to home or self care (routine discharge) 09/24/2023 10:20 AM CDT Telemedicine [facility] Psych[facility] [place] [address] [place] [address] Shahana Florence MD 701 [place], [place] [phone] Scheduled Discharge Disposition: Discharged to home or self care (routine discharge) 10/06/2023 10:00 AM CDT Office Visit [facility] [address] [phone] Beau Mcpherson MBBS 701 [facility] [address] [place], [place] [address] Scheduled Discharge Disposition: Discharged to home or self care (routine discharge) documented as of this encounter Visit Diagnoses Not on filedocumented in this encounter Additional Health Concerns Assessment Noted Time PHQ-9 Depression Total Score: 15 023 1:21 PM CDT PHQ-2 Depression Total Score: 3 01/04/20 23 1:21 PM CDT documented as of this encounter Care Teams Orthopedic Coder Relationship Specialty Start Date End Date Caron Newton SLP [facility] 701 [place] [address] Speech Pathologist Speech Pathology 09/26/22 Shahana Florence MD [address] [place] [address] Psychiatrist Outpatient Psychiatry 02/19/23 documented as of this encounter
--- OUTSIDE RECORDS SUMMARY | 2023-09-15 07:05 | XMS_ITS | Referral Summary ---
Author Organization [facility] Address [address] [facility] [place] [address] Phone Care Team Providers Care Director Credit Risk Name Role Phone Caron Newton CCC Unavailable Unavailab Shahana Owen MD Unavailable [phone] Source Comments [employer] is fully rolled out on [employer]. Last update 08/26/[email or web address] Encounters Date Type Department Care Team Description 09/12/2023 Pharmacy Prior Authorization [facility] [address] [place] [address] [address] [place] [address] Kristen Summers, PharmD 08/26/2023 Documentation Only [facility] [address] [place] [phone] Beau Mcpherson MBBS Prior Authorization For Medications (PM&R Botox PA request) Discharge Disposition: Discharged to home or self care (routine discharge) 08/25/2023 Travel 08/25/2023 10:30 AM CDT Office Visit [facility] [address] [place] [address] Beau Mcpherson MBBS Chronic migraine without aura without status migrainosus, not intractable (Primary Dx) Discharge Disposition: Discharged to home or self care (routine discharge) 08/21/2023 Refill [facility] [address] [place] [phone] Beau Mcpherson MBBS Refill Request (emgality) 08/12/2023 Documentation Only [facility] [address] [place] [address] Beau Mcpherson MBBS Form - Other ([facility] /) 08/12/2023 3:00 PM CDT Erroneous Encounter [facility] [address] [place] [address] Veto Sanchez, Toro, LP ERRONEOUS ENCOUNTER-DISREGARD (Primary Dx) Discharge Disposition: Discharged to home or self care (routine discharge) 07/17/2023 Documentation Only Clinic & [facility] TBI Clinic [address] [place] [phone] Beau Mcpherson MBBS Form - Other ([facility] ) 07/16/2023 Travel 07/16/2023 10:00 AM CDT Office Visit [facility] TBI Clinic [address] [place] [address] Beau Mcpherson MBBS Traumatic brain injury, without loss of consciousness, subsequent encounter (Primary Dx); Activity intolerance; Neck pain; Other migraine without status migrainosus, not intractable; Visual impairment Discharge Disposition: Discharged to home or self care (routine discharge) 07/11/2023 Refill Clinic & [facility] TBI Clinic [address] [place] [phone] Beau Mcpherson MBBS Refill Request (gabapentin) 07/09/2023 Documentation Only [facility] & [facility] TBI Clinic [address] [place] [address] Shavonne Betancourt RN 06/25/2023 10:40 AM CDT Telemedicine [facility] [address] [place] [address] Shahana Florence MD Recurrent major depressive disorder, in partial remission (CMS) (Primary Dx); Generalized anxiety disorder; Traumatic brain injury, without loss of consciousness, sequela (CMS) Discharge Disposition: Discharged to home or self care (routine discharge) 06/18/2023 Documentation Only [facility] & [facility] Clinic [address] [place] [address] Beau Mcpherson MBBS Form - Other (Form: [facility]//Provider: Dr. Beau Mcpherson MD //Date Arrived: 06/18/2023 //Arrival Method: Fax//Date delivered to provider: 06/18/2023 //Due Date: //Completed Form Instructions: Fax when completed to [facility] at [phone]. ) from Last 3 Months Allergies Active Allergy Reactions Criticality Noted Date Comments Cefprozil Other (see comments) 04/23/2004 Either hives or throat swelling I can't remember which one cefzil cefzil Latex Other (see comments) 05/04/2008 sensitivity to Latex Sulfa Antibiotics Other (see comments) 04/23/19 05 Sulfamethoxazole-Trimet hoprim Other (see comments) 09/24/2005 Either hives or throat swelling I can't remember which one Medications * Be aware that medications may not be up to date as of this document. Always verify current medications with patient. Medication Sig Dispensed Refills Start Date End Date Status 04/12 1-20 MG-MCG oral tablet Take 1 tablet by mouth daily. 3 Active SUMAtriptan (IMITREX) 50 mg oral TABS Take 1 tablet (50 mg) by mouth one time as needed for Headache.Take one tab with severe headache, may take additional dose in 2 hours if no improvement. Do not take more than 2 days per week. 16 tablet 2 3 Active propranolol (INDERAL) 10 mg oral TABSIndications: Anxiety Take 1 tablet (10 mg) by mouth 3 times daily as needed (Anxiety). Indications: Anxiety 90 tablet 2 4 Active Additional Information Patient not taking.Reported on 07/16/2023 busPIRone (BUSPAR) 10 mg oral tabletIndication s:Anxiety Disorder Take 1 tablet (10 mg) by mouth twice daily. Indications: Anxiety Disorder 60 tablet 2 4 Active escitalopram (LEXAPRO) 20 mg oral tabletIndication s:Generalized Anxiety Disorder Take 1 tablet (20 mg) by mouth daily. Indications: Generalized Anxiety DisorderTake with 10 mg tablet by mouth daily for total dose of 30 mg 30 tablet 2 4 Active escitalopram (LEXAPRO) 10 mg oral TABSIndications: Generalized Anxiety Disorder Take 1 tablet (10 mg) by mouth daily. Indications: Generalized Anxiety DisorderTake with 20 mg tablet for total dose of 30 mg 30 tablet 2 4 Active GABApentin (NEURONTIN) 300 mg oral capsule Take 1 capsule (300 mg) by mouth 3 times daily. 90 capsule Active meloxicam (MOBIC) 7.5 mg oral TABS Take 1 tablet (7.5 mg) by mouth twice daily as needed. 4 Active galcanezumab-gnl m (EMGALITY) 120 mg/mL subcutaneous pen Inject 1 mL (120 mg) subcutaneously every month.Take once per month 1 mL 2 4 Active EMGALITY 120 MG/ML subcutaneous pen Inject 1 mL (120 mg) subcutaneously every month.Take once per month 1 mL 2 4 08/22/19 24 Discontinued Active Problems Problem Noted Date Diagnosed Date GOMEZ (obstructive sleep apnea) 01/20/2023 Mood and affect disturbance 01/15/2023 Neck pain 01/15/2023 Migraine without status migrainosus, not intract able 01/15/2023 Visual impairment 01/15/2023 Activity intolerance 01/15/2023 Impaired instrumental activities of daily living (IADL) 01/15/2023 Impaired functional mobility, balance, and endur ance 01/15/2023 Insomnia 01/06/2023 TBI (traumatic brain injury) (CMS) 07/23/2022 Social History Tobacco Use Types Packs/Day Years Used Date Smoking Tobacco: Never Passive Smoke Exposure: Never Smokeless Tobacco: Never Tobacco Cessation:Counseling Given: Not Answered Alcohol Use Standard Drinks/Week Comments Yes 0 (1 standard drink = 0.6 oz pur e alcohol) occasional PHQ-2 Answer Date Recorded PHQ-2 Subtotal 3 01/03/2023 Sex and Gender Information Value Date Recorded Sex Assigned at Not on file Gender Identity Not on file Sexual Orientation Not on file Last Filed Vital Signs Vital Sign Reading Time Taken Comments Blood Pressure 119/79 08/25/2023 10:15 AM CDT Pulse 88 08/25/2023 10:15 AM CDT Temperature - - Respiratory Rate - - Oxygen Saturation - - Inhaled Oxygen Concentration - - Weight 91.6 kg (202 lb) 08/25/2023 10:15 AM CDT Height 167.6 cm (5' 6) 02/19/2023 8:57 AM PHOTOGRAMMETRY AIRPLANE PILOT Body Mass Index 32.6 02/19/2023 8:57 AM PHOTOGRAMMETRY AIRPLANE PILOT Plan of Treatment Upcoming Encounters Date Type Department Care Team (Late st Contact Info) Description 09/16/2023 8:00 AM CDT Office Visit [facility] 701 [facility] [address] [place] [address] Champ Buitrago PsyD, LP 701 [facility] O[address] [place], [place] [phone] Room, International Specialist Waiting [facility] 701 [place] [address] Scheduled Discharge Disposition: Discharged to home or self care (routine discharge) 09/24/2023 10:20 AM CDT Telemedicine [facility] [place] [address] [place] [address] Shahana Florence MD 701 [place], [place] [phone] Scheduled Discharge Disposition: Discharged to home or self care (routine discharge) 10/06/2023 10:00 AM CDT Office Visit [facility] [address] [place] [phone] Beau Mcpherson MBBS 701 [facility] [address] [place], [place] [address] Scheduled Discharge Disposition: Discharged to home or self care (routine discharge) Care Teams Director Credit Risk Relationship Specialty Start Date End Date Caron Newton, TRANSCRIBER CCC 701 [place] [address] Speech Pathologist Speech Pathology 09/26/22 Shahana Florence MD 705 [place] [address] Psychiatrist Outpatient Psychiatry 02/19/23
--- OUTSIDE RECORDS SUMMARY | 2023-09-15 07:05 | XMS_ITS | Clinical Summary ---
Author Organization [employer] Address [address] [place] [address] Phone Care Team Providers Care Cook Fast Food Name Role Phone Caron Newton [facility] Unavailable Unavailab Shahana Owen MD Unavailable Source Comments Geni is fully rolled out on #waywire. Last update 08/26/08.[employer] Allergies Active Allergy Reactions Criticality Noted Date [...] by mouth 3 times daily. 90 capsule 4 Active meloxicam (MOBIC) 7.5 mg oral TABS [...] 01/15/2023 Insomnia 01/06/2023 TBI (traumatic brain injury) ([facility]) 07/23/2022 Encounters Date Type Department Care Team Description 09/12/[address] [facility] P1 Pharmacy [address] [place] [address] Kristen Summers, PharmD 08/26/2023 Documentation Only [facility] [address] [place] [address] Beau Mcpherson MBBS Prior Authorization For Medications (PM&R Botox PA request) Discharge Disposition: Discharged to home or self care (routine discharge) 08/25/2023 10:30 AM CDT Office [facility] [address] [place] [address] Beau Mcpherson MBBS Chronic migraine without aura without status migrainosus, not intractable (Primary Dx) Discharge Disposition: Discharged to home or self care (routine discharge) 08/25/2023 Travel 08/21/2023 Refill [facility] [address] [place] [address] Beau Mcpherson MBBS Refill Request (emgality) 08/12/2023 3:00 PM CD[address] Erroneous Encounter [facility] Sleep Center 701 [facility] [address]8.220 [place] [address] Veto Sanchez, Toro, LP ERRONEOUS ENCOUNTER-DISREGARD (Primary Dx) Discharge Disposition: Discharged to home or self care (routine discharge) 08/12/2023 Documentation Only [facility] [address] [place] [address] Beau Mcpherson MBBS Form - Other ([facility] /) 07/17/2023 Documentation Only [facility] [address] [place] [address] Beau Mcpherson MBBS Form - Other ([facility] ) 07/16/2023 10:00 AM CDT Office Visit [facility] [place] [facility] [address] [place] [address] Beau Mcpherson MBBS Traumatic brain injury, without loss of consciousness, subsequent encounter (Primary Dx); Activity intolerance; Neck pain; Other migraine without status migrainosus, not intractable; Visual impairment Discharge Disposition: Discharged to home or self care (routine discharge) 07/16/2023 Travel 07/11/2023 Refill [facility] [address] [place] [address] Beau Mcpherson MBBS Refill Request (gabapentin) 07/09/2023 Documentation Only [facility] [address] [place] [address] Shavonne Betancourt RN 06/25/2023 10:[address] [facility] Psychiatry [facility] [place] [address] [place] [address] Shahana Florence MD Recurrent major depressive disorder, in partial remission (CMS) (Primary Dx); Generalized anxiety disorder; Traumatic brain injury, without loss of consciousness, sequela (CMS) Discharge Disposition: Discharged to home or self care (routine discharge) 06/18/2023 Documentation Only [facility] [address] [place] [address] Beau Mcpherson MBBS Form - Other (Form: [facility]//Provider: Dr. Beau Mcpherson MD //Date Arrived: 06/18/2023 //Arrival Method: Fax//Date delivered to provider: 06/18/2023 //Due Date: //Completed Form Instructions: Fax when completed to [facility] at [phone]. ) from Last 3 Months Social History Tobacco Use Types Packs/Day Years [...] 167.6 cm (5' 6) 02/19/2023 8:57 AM TECHNICAL SUPPORT REPRESENTATIVE Body Mass Index 32.6 02/19/2023 8:57 AM TECHNICAL SUPPORT REPRESENTATIVE Plan of Treatment Upcoming Encounters Date Type Department Care Team (Late st Contact Info) Description 09/16/2023 8:00 AM CDT Office Visit [facility] Psychology 701 [facility] [address]8.120 [place] [address] Champ Buitrago PsyD, SARA 701 [facility] O8 [place] [address] Room, Cage Supervisor Waiting [facility] 701 [place] [address] Scheduled Discharge Disposition: Discharged to home or self care (routine discharge) 09/24/2023 10:[address] [facility] Psychiatry [facility] [place] [address] [place] [address] Shahana Florence MD [address] [place] [address] Scheduled Discharge Disposition: Discharged to home or self care (routine discharge) 10/06/2023 10:00 AM CDT Office [facility] [address] [place] [address] Beau Mcpherson MBBS 701 [facility] P5 [place] [address] Scheduled Discharge Disposition: Discharged to home or self care (routine discharge) Health Maintenance Due Date Last Done Comments Dental Oral Exam 1981 Dental Prophylaxis 1981 Dental X-Ray: Bitewings 1981 Lipid Screening 1982 Periodontal Maintenance 1995 HIV Screening 02/11/1996 HEALTH MAINTENANCE PROTOCOL 02/11/2000 Imm: HepB (1 of 3 - 19+ 3-dose series) 02/11/2000 Cervical Cancer Screening Age 30-65 2011 PREVENTATIVE VISIT 03/30/2017 03/30/2016, 0 11/14/2014, 04/18/2011, Additional history exists TD/TDAP ADULTS 03/07/2018 03/07/2008 INFLUENZA VACCINE 10/22/2022 03/12/2019, , 12/21/2016, Additional history exists COVID-19 Vaccine ( season) 2022 Depression Management 07/05/2023 01/03/2023 HIB Aged Out No longer eligi ble based on patient's age to complete this topic Imm: Pneumonia Peds or At-Risk less than 65 years Aged Out No longer bonifacio gible based on patient's age to complete this topic RSV Infant Immunoglobulin Aged Out No longer eligible based on patient's age to complete this topic Care Teams Cook Fast Food Relationship Specialty Start Date End Date Caron Newton, MARIAMA [facility] [address] [place] [address] Speech Pathologist Speech Pathology 09/26/22 Shahana Florence MD [address] [place] [address] Psychiatrist Outpatient Psychiatry 02/19/23
--- OUTSIDE RECORDS SUMMARY | 2023-09-15 07:05 | XMS_ITS | Encounter Summary ---
Author Organization [facility] Address 701 [facility] [place] [address] Phone Care Team Providers Care Languages And Literature Instructor Name Role Phone Caron Newton [facility] Unavailable Unavailab Shahana Owen MD Unavailable [phone] Reason for Visit * Reason Onset Date Comments Prior Authorization For Medications 09/12/2023 Botox (onabotulinumtoxinA) Encounter Details Date Type Department Care Team (Late st Contact Info) Description 09/12/2023 Pharmacy Prior Authorization [facility] P1 Pharmacy 701 [facility] [address] [place] [address] Kristen Summers, PharmD 701 [place] [address] Social History Tobacco Use Types Packs/Day Years [...] as of this encounter Progress Notes * Kristen Summers, PharmD - 09/12/2023 8:55 AM CDT PA SUBMITTED - BOTOX (onabotulinumtoxinA) A prior authorization (renewal) request for BOTOX has been submitted to [employer] insurance via [employer] ONLINE PA PORTAL. We will update once we have a decision back. CMM [place] (If applicable): N/A Case # [id number] Kristen Interiano PharmD Clinical Pharmacist - Pharmacy Prior Authorization Team documented in this encounter Plan of Treatment Upcoming Encounters Date Type Department Care Team (Late st Contact Info) Description 09/16/2023 8:00 AM CDT Office Visit [facility] Psychology 701 [facility] [address] [place] [address] Champ Buitrago PsyD, LP 701 [facility] O8 [place] [address] Room, Hatchery Supervisor Waiting [facility] 701 [place] [address] Scheduled Discharge Disposition: Discharged to home or self care (routine discharge) 09/24/2023 10:20 AM CDT Telemedicine [facility] Psychiatry [facility] [place] [address] [place] [address] Shahana Florence MD 701 [place], [place] [address] Scheduled Discharge Disposition: Discharged to home or self care (routine discharge) 10/06/2023 10:00 AM CDT Office Visit [facility] [address] [address] Beau Mcpherson MBBS 701 [facility] P5 [place], [place] [address] Scheduled Discharge Disposition: Discharged to home or self care (routine discharge) documented as of this encounter Visit Diagnoses Not on filedocumented in this encounter Additional Health Concerns Assessment Noted Time PHQ-9 Depression Total Score: 15 023 1:21 PM CDT PHQ-2 Depression Total Score: 3 01/04/20 23 1:21 PM CDT documented as of this encounter Care Teams Languages And Literature Instructor Relationship Specialty Start Date End Date Caron Newton, LANGUAGE AND LITERATURE DIVISION CHAIR [facility] 701 [place] [address] Speech Pathologist Speech Pathology 09/26/22 Shahana Florence MD [address] [place] [id number] Psychiatrist Outpatient Psychiatry 02/19/23 documented as of this encounter
--- OUTSIDE RECORDS SUMMARY | 2023-09-15 07:05 | XMS_ITS | Encounter Summary ---
Author Organization [facility] Address [address] [facility] [place] [address] Phone Care Team Providers Care Fire Engineer Name Role Phone Caron Newton [facility] Unavailable Unavailab Shahana Owen MD Unavailable [phone] Reason for Visit * Reason Onset Date Comments Erroneous encounter-disregard 08/12/2023 Encounter Details Date Type Department Care Team (Latest Contact Info) Description 08/12/2023 3:00 PM CDT Erroneous Encounter [facility] Sleep Center 701 [facility] [address] [place] [address] Veto Sanchez PsyD, LP [address] [place] [address] ERRONEOUS ENCOUNTER-DISREGARD (Primary Dx) Discharge Disposition: Discharged [...] as of this encounter Progress Notes * Veto Sanchez PsyD, LP - 08/12/2023 3:00 PM CDT Do not billThis encounter was opened in error. Please disregard. documented in this encounter Plan of Treatment Upcoming Encounters Date Type Department Care Team (Late st Contact Info) Description 09/16/2023 8:00 AM CDT Office Visit [facility] Psychology 701 [facility] [address] [place] [address] Champ Buitrago PsyD, LP 701 [facility] O8 [place] [address] Room, Freight Handler Waiting [facility] 701 [place] [address] Scheduled Discharge Disposition: Discharged to home or self care (routine discharge) 09/24/2023 10:20 AM CDT Telemedicine [facility] Psychiatry Clinic [place] [address] [place] [address] Shahana Florence MD 701 [place] [address] Scheduled Discharge Disposition: Discharged to home or self care (routine discharge) 10/06/2023 10:00 AM CDT Office Visit [facility] [address] [address] Beau Mcpherson MBBS 701 [facility] P5 [place] [address] Scheduled Discharge Disposition: Discharged to home or self care (routine discharge) documented as of this encounter Visit Diagnoses Diagnosis ERRONEOUS ENCOUNTER-DISREGARD- Primary documented in this encounter Additional Health Concerns Assessment Noted Time PHQ-9 Depression Total Score: 15 023 1:21 PM CDT PHQ-2 Depression Total Score: 3 01/04/20 23 1:21 PM CDT documented as of this encounter Care Teams Fire Engineer Relationship Specialty Start Date End Date Caron Newton, MARI[place] [facility] 701 [place] [address] Speech Pathologist Speech Pathology 09/26/22 Shahana Florence MD [address] [place] [address] Psychiatrist Outpatient Psychiatry 02/19/23 documented as of this encounter
--- OUTSIDE RECORDS SUMMARY | 2023-09-15 07:05 | XMS_ITS | Encounter Summary ---
Author Organization [facility] Address 1 [place] [address] Phone Care Team Providers Care Computer Network And Systems Engineer Name Role Phone Caron Newton [facility] Unavailable Unavailab Shahana Owen MD Unavailable [phone] Encounter Details Date Type Department Care Team (Latest Contact Info) Description 07/16/2023 Travel Social History Tobacco Use Types Packs/Day [...] 09/16/2023 8:00 AM CDT Office Visit [facility] Psychology 1 [facility] [address] [place], [place] 139[address] Champ Buitrago PsyD, SARA [address] [facility] [address] [place] [address] Room, Dust Handler Waiting [facility] 701 [place] [address] Scheduled Discharge Disposition: Discharged to home or self care (routine discharge) 09/24/2023 10:20 AM CDT Telemedicine [facility] Psychiatry Clinic [place] [address] [place] [address] Shahana Florence MD [address] [place] [phone] Scheduled Discharge Disposition: Discharged to home or self care (routine discharge) 10/06/2023 10:00 AM CDT Office [facility] [address] [address] Beau Mcpherson MBBS [address] 9923[address] Scheduled Discharge Disposition: Discharged to home or self care (routine discharge) documented as of this encounter Visit Diagnoses Not on filedocumented in this encounter Additional Health Concerns Assessment Noted Time PHQ-9 Depression Total Score: 15 023 1:21 PM CDT PHQ-2 Depression Total Score: 3 01/04/20 23 1:21 PM CDT documented as of this encounter Care Teams Computer Network And Systems Engineer Relationship Specialty Start Date End Date Caron Newton, MARIAMA [facility] 701 [place] [address] Speech Pathologist Speech Pathology 09/26/22 Shahana Florence MD 701 [place] [address] Psychiatrist Outpatient Psychiatry 02/19/23 documented as of this encounter
--- OUTSIDE RECORDS SUMMARY | 2023-09-15 07:05 | XMS_ITS | Encounter Summary ---
Author Organization [facility] Address [address] [place] [address] Phone Care Team Providers Care Registered Dietitian Name Role Phone Caron Newton [facility] Unavailable Unavailab Shahana Owen MD Unavailable [phone] Reason for Visit * Reason Comments Form - Other [facility] Encounter Details Date Type Department Care Team (Latest Contact Info) Description 08/12/2023 Documentation Only [facility] [address] [phone] Beau Mcpherson MBBS [address] [id number] Form - Other ([facility] /) Social History Tobacco Use Types Packs/Day Years [...] Progress Notes * Nia Fontanez CMA - 08/12/2023 10:41 AM CDT Form: [facility] Provider: Dr. Beau Mcpherson MD Date Arrived: 08/12/2023 Arrival Method: Fax Date delivered to provider: 08/12/2023 Due Date: 08/19/23 Completed Form Instructions: Fax when completed [facility] at [phone]. * Candace Sauceda RN - 08/12/2023 10:41 AM CDT Date Completed: 08/15/23 Forms completed & delivered per request as documented. Candace Sauceda RN, 08/15/2023 7:47 AM 08/15/2023 documented in this encounter Plan of Treatment Upcoming Encounters Date Type Department Care Team (Late st Contact Info) Description 09/16/2023 8:00 AM CDT Office Visit [facility] Psychology 701 [facility] [address] [place] [address] Champ Buitrago PsyD, LP 701 [facility] O8 [place] [address] Room, Prosthetist Waiting [facility] [address] [place] [address] Scheduled Discharge Disposition: Discharged to home or self care (routine discharge) 09/24/2023 10:20 AM CDT Telemedicine [facility] Psychiatry Clinic [place] [address] [place] [address] Shahana Florence MD 701 [place] [address] Scheduled Discharge Disposition: Discharged to home or self care (routine discharge) 10/06/2023 10:00 AM CDT Office [facility] [address] [place] [address] Beau Mcpherson MBBS 701 [facility] P5 [place] [address] Scheduled Discharge Disposition: Discharged to home or self care (routine discharge) documented as of this encounter Visit Diagnoses Not on filedocumented in this encounter Additional Health Concerns Assessment Noted Time PHQ-9 Depression Total Score: 15 023 1:21 PM CDT PHQ-2 Depression Total Score: 3 01/04/20 23 1:21 PM CDT documented as of this encounter Care Teams Registered Dietitian Relationship Specialty Start Date End Date Caron Newton, OUTBOUND SALES PROFESSIONAL [facility] 701 [place] [address] Speech Pathologist Speech Pathology 09/26/22 Shahana Florence MD [address] [place], [place] [phone] Psychiatrist Outpatient Psychiatry 02/19/23 documented as of this encounter
--- OUTSIDE RECORDS SUMMARY | 2023-09-15 07:06 | XMS_ITS | Clinical Summary ---
Author Organization [facility] Address [place], [place] [address] Care Team Providers Care Top And Trim Worker Name Role Phone Clinic, No Pcp Or Primary Care Provider Unavaila ble Allergies Active Allergy Reactions Criticality Noted Date Comments Sulfamethoxazole-Trim ethoprim Other - Describe In Comment Field 09/24/2005 Either hives or throat swelling I can't remember which one Cefprozil Other - Describe In Comment Field 04/23/2004 Either hives or throat swelling I can't remember which one cefzil Latex 05/04/2008 sensitivity to Latex Sulfa (Sulfonamide Antibiotics) Hives 04/23/2004 Medications Medication Sig Dispensed Refills Start Date End Date Status NORGESTIMATE-ETHINYL ESTRADIOL (ORTHO TRI-CYCLEN LO ORAL) Take by mouth. A ctive escitalopram oxalate (LEXAPRO) 20 mg tablet Take 20 mg by mouth once daily. 02/28/2019 Active 04/12, , 1-20 mg-mcg tablet TAKE ONE TABLET BY MOUTH DAILY. take continuously. 03/09/2019 Active norethin thierry-eth estrad-fe, 1-20 mg-mcg, (LOESTRIN FE 04/12; FE 04/12) tablet Take 1 Tab by mouth. Active ESCITALOPRAM OXALATE ORAL Take 20 mg by mouth. 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 Resolved Problems Problem Noted Date Diagnosed Date Resolved Date Twin , antepartum 07/12/2008 0 07/12/2008 Social History Tobacco Use Types Packs/Day Years Used Date Smoking Tobacco: Never Smokeless Tobacco: Never Tobacco Cessation:Counseling Given: No Alcohol Use Standard Drinks/Week Comments Not Currently 0 (1 standard drink = 0.6 oz pur e alcohol) Occ Sex and Gender Information Value Date Recorded Sex Assigned at Not on file Gender Identity Not on file Sexual Orientation Not on file Obstetrics History Para Term AB IAB SAB Ectopic Multiple Livin g Live Births 3 2 1 1 1 0 0 0 1 3 3 Date Outcome GA Total Labor Labor/2nd/3rd Weight Sex Type Anes PTL Nayeli A1 A5 Name Clin 2008 34w 0d 1.92 kg (4 lb 3.7 oz) M C-Sec tion Spinal Y Livin g 9 9 Tam Goodm an Delivery Location:[facility] Comments:mono/mono twi ns 1.85 kg (4 lb 1.3 oz) M Livin g 9 9 Melvin 2005 Term 39w 4d 3h 00m/ 4.2 kg (9 lb 4 oz) M C-Sec tion Livin g Mike Comments:labored, jewel , c/b 2007 AB 5w0 d Last Filed Vital Signs Vital Sign Reading Time Taken Comments Blood Pressure 133/89 06/11/2022 3:19 PM CDT Pulse 77 06/11/2022 3:19 PM CDT Temperature 36.4 ??C (97.6 ??F) 06/11/2022 3:19 PM CD T Respiratory Rate 12 06/11/2022 3:19 PM CDT Oxygen Saturation 97% 06/11/2022 3:19 PM CDT Inhaled Oxygen Concentration - - Weight 86.2 kg (190 lb) 06/11/2022 3:19 PM CDT Height 165.1 cm (5' 5) 06/11/2022 3:19 PM CDT Body Mass Index 31.62 06/11/2022 3:19 PM CDT Plan of Treatment Health Maintenance Due Date Last Done Comments Tdap 02/11/1992 Depression screening for age 12+ 1993 HIV for age 15-65 02/11/1996 BMI (ht and wt on same day) for age 18+ 1999 Hepatitis C screening for ag e 18-79 1999 Tetanus booster 2001 Pap test for age 21-65 2002 COVID-19 vaccine series (2022-24 season) 2022 Influenza for age 9-49 11/23/2023 Pneumococcal series for age 6-64 Aged Out No longer eligible based on patient's age to complete this topic Advance Directives * Full Code (Latest Code Status on File) Date Activated Date Inactivated Comments 08/29/2008 1:50 AM 08/29/2008 5:14 PM * Full Code Date Activated Date Inactivated Comments 07/10/2008 11:46 AM 07/10/2008 4:13 PM * Full Code Date Activated Date Inactivated Comments 06/29/2008 7:33 PM 06/30/2008 12:24 AM * Full Code Date Activated Date Inactivated Comments 06/27/2008 12:09 PM 06/27/2008 2:19 PM * Full Code Date Activated Date Inactivated Comments 05/04/2008 7:19 PM 05/05/2008 12:55 AM Care Teams Top And Trim Worker Relationship Specialty Start Date End Date Clinic, No Pcp Or . PCP - General 02/14/18
--- OUTSIDE RECORDS SUMMARY | 2023-09-15 07:06 | XMS_ITS | Encounter Summary ---
Author Organization [facility] Address [address] [place] [address] Phone Care Team Providers Care Car Customizer Name Role Phone Caron Newton [facility] Unavailable Unavailab Shahana Owen MD Unavailable [phone] Reason for Visit * Reason Comments Form - Other [facility]: [facility] Beau Mcpherson MD Date Arrived: 06/18/2023 Arrival Method: FaxDate delivered to provider: 06/18/2023 Due Date: Completed Form Instructions: Fax when completed to [facility] at [phone]. Encounter Details Date Type Department Care Team (Latest Contact Info) Description 06/18/2023 Documentation Only [facility] [address] [address] Beau Mcpherson MBBS [address] [phone] Form - Other (Form: [facility]//Provider: Dr. Beau Mcpherson MD //Date Arrived: 06/18/2023 //Arrival Method: Fax//Date delivered to provider: 06/18/2023 //Due Date: //Completed Form Instructions: Fax when completed to [facility] at [phone]. ) Social History Tobacco Use Types Packs/Day [...] as of this encounter Progress Notes * Mahsa Fleming CMA - 06/18/2023 3:07 PM CDT Date Completed: 06/23/23 Forms completed & delivered per request as documented. Mahsa Fleming CMA, 06/23/2023 11:52 AM 06/23/2023 documented in this encounter Plan of Treatment Upcoming Encounters Date Type Department Care Team (Late st Contact Info) Description 09/16/2023 8:00 AM CDT Office Visit [facility] Psychology 701 [facility] [address] [place] [address] Champ Buitrago, Toro, LP 701 [facility] [address] [place] [address] Room, Blown Film Extrusion Operator Waiting [facility] 701 [place] [address] Scheduled Discharge Disposition: Discharged to home or self care (routine discharge) 09/24/2023 10:20 AM CDT Telemedicine [facility] Psychiatry [facility] [place] [address] [place] [address] Shahana Florence MD 701 [place] [address] Scheduled Discharge Disposition: Discharged to home or self care (routine discharge) 10/06/2023 10:00 AM CDT Office Visit [facility] [address] [place] [address] Beau Mcpherson MBBS 701 [facility] [address] [place] [address] Scheduled Discharge Disposition: Discharged to home or self care (routine discharge) documented as of this encounter Visit Diagnoses Not on filedocumented in this encounter Additional Health Concerns Assessment Noted Time PHQ-9 Depression Total Score: 15 023 1:21 PM CDT PHQ-2 Depression Total Score: 3 01/04/20 23 1:21 PM CDT documented as of this encounter Care Teams Car Customizer Relationship Specialty Start Date End Date Caron Newton, MARI[place] [facility] 701 [place] [address] Speech Pathologist Speech Pathology 09/26/22 Shahana Florence MD [address] [place] [address] Psychiatrist Outpatient Psychiatry 02/19/23 documented as of this encounter
--- OUTSIDE RECORDS SUMMARY | 2023-09-15 07:06 | XMS_ITS | Encounter Summary ---
Author Organization [facility] Address [address] [place] [address] Phone Care Team Providers Care Instructor Wastewater Treatment Plant Name Role Phone Caron Newton [facility] Unavailable Unavailab Shahana Owen MD Unavailable [phone] Encounter Details Date Type Department Care Team (Late st Contact Info) Description 07/09/2023 Documentation Only [facility] [address] [address] Shavonne Betancourt, RN [address] [place] [address] Social History Tobacco Use Types Packs/Day Years [...] as of this encounter Progress Notes * Shavonne Betancourt, SHAZIA - 07/09/2023 3:29 PM CDT Form: [facility] attending physician's statement Provider: Date Arrived: 07/09/2023 Date delivered to provider: 07/09/2023 Due Date: 07/19/23 Completed Form Instructions: Fax when completed to [facility] at [phone]. Shavonne Betancourt, RN, 07/09/2023 3:30 PM * Candace Sauceda RN - 07/09/2023 3:29 PM CDT Date Completed: 07/11/23 Forms completed & delivered per request as documented. Candace Sauceda RN, 07/11/2023 7:33 AM 07/11/2023 documented in this encounter Plan of Treatment Upcoming Encounters Date Type Department Care Team (Late st Contact Info) Description 09/16/2023 8:00 AM CDT Office Visit [facility] Psychology 701 [facility] [address] [place] [address] Champ Buitrago, Toro, LP 701 [facility] [place] [place] [address] Room, Financial Compliance Manager Waiting [facility] [address] [place] [address] Scheduled Discharge Disposition: Discharged to home or self care (routine discharge) 09/24/2023 10:20 AM CDT Telemedicine [facility] Psychiatry Clinic [place] [address] [place] [address] Shahana Florence MD [address] [place] [address] Scheduled Discharge Disposition: Discharged to home or self care (routine discharge) 10/06/2023 10:00 AM CDT [facility] [address] [place] [address] Beau Mcpherson MBBS 701 [facility] [place] [place] [address] Scheduled Discharge Disposition: Discharged to home or self care (routine discharge) documented as of this encounter Visit Diagnoses Not on filedocumented in this encounter Additional Health Concerns Assessment Noted Time PHQ-9 Depression Total Score: 15 023 1:21 PM CDT PHQ-2 Depression Total Score: 3 01/04/20 23 1:21 PM CDT documented as of this encounter Care Teams Instructor Wastewater Treatment Plant Relationship Specialty Start Date End Date Caron Newton, ONLINE MERCHANDISING COORDINATOR [facility] [address] [place] [address] Speech Pathologist Speech Pathology 09/26/22 Shahana Florence MD [address] [place], [place] [id number] Psychiatrist Outpatient Psychiatry 02/19/23 documented as of this encounter
--- OUTSIDE RECORDS SUMMARY | 2023-09-15 07:06 | XMS_ITS | Continuity of Care Document ---
Author Organization [facility] Address [address] [address] [place] [address] Phone Care Team Providers Care Herbicide Service Sales Representative Name Role Phone Aristeo Stanton MD, Victor M Unavailable Unavailabl e Allergies, Adverse Reactions, Alerts Substance Reaction Status [...] E&m Estab Low-mod 0 Offic/outpt E&m [facility] Colonoscopy Flex; W/bx 1/mx Level Iv-surg Path Gross/micro 17 Offic/outpt E&m [facility] Offic Cons New/estab Mod Routine Serum Collection [id number] Advance Directives Directive Yes / No Effective Date File Name No Information Encounters Encounter Description Practice Location Reason(s) For Visit Diagnoses Date Provider Providers Copied on Encounter [facility], [address] [address], [place], [id number], [place] tel:[phone] [facility] No Information 4 Aristeo Dow. [address] [facility], [address], [place], [id number] , [place]. tel: [phone] Offic/outpt E&m [facility] Low-mod [facility], [address] [address], [place], [id number], [place] tel:[phone] [facility] GI Symptoms or Concerns (chief complaint) Lower abdominal painDietary counseling and surveillance 0 Hasmukh Willett . [address] [facility], [facility] [address], [place], [id number] , [place]. tel: [phone] Referring Provider: Referral Self, USE FOR SELF REFERRALS. [facility], [address] [address], [place], [id number], [place] tel:[phone] [facility] No Information 0 Medhat Byrnes. [address] [facility], [address], [place], [id number] , [place]. tel: [phone] Offic/outpt E&m New Mod-hi [facility], [address] [address], [place], [id number], [place] tel:[phone] [facility] GI Symptoms or Concerns (chief complaint) Right lower quadrant abdominal pain 0 Hasmukh Willett . [address] [facility], [address], [place], [id number] , [place]. tel: [phone] Referring Provider: Referral Self, USE FOR SELF REFERRALS. [facility], [address] [address], [place], [id number], [place] tel:[phone] [facility] No Information 0 Mal Jay. [address] [facility], [address], [place], [place], [id number] , [place]. tel: [phone] [facility], [address] [address], [place], [id number], [place] tel:[phone] [facility] Hemorrhage of anus and rectumInternal hemorrhoidColorec lina polyp detected on colonoscopyFamily history of colonic polypsBenign neoplasm of sigmoid colonFamily history of colonic polypsHemorrhage of anus and rectumOther hemorrhoids 7 Hasmukh Willett . [address] [facility], [facility] [address], [place], [id number] , [place]. [phone] Referring Provider: Referral Self, USE FOR SELF REFERRALS. Offic/outpt E&m New Mod-hi [facility], [address] [address], [place], [id number], [place] tel:[phone] [facility] GI Symptoms or Concerns (chief complaint) Rectal bleedingFamily history of colonic polypsDietary counseling and surveillance 7 Hasmukh Willett . [address] [facility], [facility] [address], [place], [id number] , [place]. [phone] Referring Provider: Referral Self, USE FOR SELF REFERRALS. Offic Cons New/estab Mod [facility], [address] [address], [place], [id number], [place] tel:[phone] [facility] Abdominal pain (chief complaint) Rectal bleeding (chief complaint) Change In Bowel Habits 0 Jhonathan Baker. [address] [facility], [facility] [address], [place], [id number] , [place]. [phone] Referring Provider: Bhargavi Noel MD R, [address] [facility] [address], [place], [address]. tel:[phone] Family History Family Member Type Diagnosis Age [...] Insurance type Covered libertarian ID Authoriza timaira(s) [facility] [id number] Social History Type Description Quantity Date Captured [...] 2 Months Appointment date/timeframe: 2 Months ordered Appointment Una Alvarez BOOKED History Of Present Illness Encounter Date Complaint [...] concerned for inflammatory disease. Prior colonoscopy in 2017 had shown a polyp and internal hemorrhoids. 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 This happened [...]
--- OUTSIDE RECORDS SUMMARY | 2023-09-15 07:06 | XMS_ITS | Encounter Summary ---
Author Organization [facility] Address [address] [place] [address] Phone Care Team Providers Care Pricing Consultant Name Role Phone Caron Newton [facility] Unavailable Unavailab Shahana Owen MD Unavailable [phone] Reason for Referral * Consult/Test/Treat (Routine) - New Request Specialty Diagnoses / Procedures Referred By Contac t Referred To Contact Diagnoses Traumatic brain injury, without loss of consciousness, subsequent encounter Activity intolerance Visual impairment Beau Mcpherson MBBS [address] [address] PATIENT CHOICE Referral ID Status Reason Start Date Expiration Date V isits Requested Visits Authorized [id number] New Request 07/16/2023 07/15/2024 1 1 * Consult/Test/Treat (Routine) - New Request Specialty Diagnoses / Procedures Referred By Contac t Referred To Contact Physical Therapy / PHYSICAL THERAPY Diagnoses Traumatic brain injury, without loss of consciousness, subsequent encounter Activity intolerance Neck pain Other migraine without status migrainosus, not intractable Beau Mcpherson MBBS [address] [address] PATIENT CHOICE Referral ID Status Reason Start Date Expiration Date V isits Requested Visits Authorized [id number] New Request 07/16/2023 07/15/2024 1 1 Reason for Visit * Reason Comments Follow-up TBI Encounter Details Date Type Department Care Team ([facility] Contact Info) Description 07/16/2023 10:00 AM CDT Office Visit [facility] [address] [address] Beau Mcpherson MBBS 701 [facility] [address] [place] [address] Traumatic brain injury, without loss of consciousness, [...] Sign Reading Time Taken Comments Blood Pressure 111/64 07/16/2023 9:46 AM CDT Pulse 94 07/16/2023 9:46 AM CDT Temperature - - Respiratory Rate - - Oxygen Saturation - - Inhaled Oxygen Concentration - - Weight 94.5 kg (208 lb 6.4 oz) 07/16/2023 9:46 A M CDT Height - - Body Mass Index 33.64 02/19/2023 8:57 AM INVESTMENT CONSULTANT documented in this encounter Patient Instructions * Patient Instructions* Beau Mcpherson MBBS - 07/16/2023 10:00 AM CDT May try to taper gabapentin two times a day for one week then decrease to once at night for one week then discontinue. May resume if your headache is worse. Schedule an appointment with neuropsychology Follow up with sleep psychology documented in this encounter Progress Notes * Beau Mcpherson MBBS - 07/16/2023 10:00 [place] [address] [facility] [id number] PATIENT: Una Alvarez : 1980 DATE OF [...] progress in her physical symptoms with therapies. Difficulty with overstimulation/comprehension/visual impairment. Last seen on 04/28/23. PLAN: Posttraumatic headache: tension type with migraine headaches. Was told that she can gradually tapergabapentin to see if it's helping with headache.. Sumatriptan as needed. Emgality has been helping with intensity. Doesn't get severe headache as often but still gets about 3 times per week with severe intensity. Limited options for preventative medication since she is on lexapro. (Would avoid tricy clic antidepressant), also risk of weight gain and other mood impact with depakote. She had one trial of neck injection [facility]. She will have another one in July. Consider botox injection if no relief after possible neck injection. Visual impairment: slowly improving with therapies. May have some nausea with vision exercise. continue with [facility] and does vision therapy, however workers comp stop approving. External referral to occupational therapy for vision therapy made. (Diagnosis: convergence insufficiency, deficient smooth pursuit eye movement, disorders of binocular movement, deficient saccadic eye movement,other irregular eye movement, spasm of accommodation). Dizziness/Balance: able to tolerate activities a little bit more. Continue with external physical therapy in [place], working on balance. Has disequilibrum at times. Improving. Developed symptoms when she was on exercise bike up to 10 minutes. Continue with subsymptom threshold exercise and neck pain. External referral was made Cognitive symptoms and fatigue: was discharged from speech and language pathology with limited progress. neuropsychological testing at about one year lazara from the injury if cognitive symptoms don't improve. A referral to neuropsychology was made at last visit. Advised to contact to schedule an appo intment Sleep Impairment:Continue with CBTi and sleep medicine. [...] She is on propranolol/lexapro/buspar. Return to work: work letter updated. Also got accommodation from her [facility] physician. Given slow gradual progress and ongoing high symptom load, less likely that she would be able to return to current position. Explained the importance of return to work as soon as possible with accommodation. She would likely need different type of work or would benefit from vocational rehab after rehab course. 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 Returned to work but was not successful. [...] due to visual and cognitive impairment. Please provide transportation for com Psychosocial: good family support. Workers comp stop covering therapies. Utilizing her own insurance Return to driving: doing limited driving. Able to drive on [address] [place] distance. She was released to limited driving (no freeway) after occupational therapy driving screening in May 2023 Neck pain: persistent neck pain. She continues with [facility]. She is getting evaluated for injection. Return to clinic: follow up in 4-6 weeks. Advised to call the clinic with any questions/concerns. Explained the rationale of further evaluation and treatment recommendation as above. After discussion with the patient/spouse, the above treatment plan was decided through shared clinical decision making. History of Present Illness: Since the last visit, she has been seen by sleep psychology and psychiatry. Mood has been pretty good. There are some days that she is depressed. She was released to limited driving She is making some progress with lights. She has an appointment with eye doctor on 07/21. She took some break from occupational therapy and will resume soon. She had occupational therapy driving screening which showed decreased peripheral vision, divided attention and speed of visual scanning. She has been doing lower speed driving up to 10 minutes driving. She had a trial run of cervical injection. She will have another one on 07/27. She felt some relief but she had injection site pain. She is on emgality, gabapentin and sumatriptan. She notes that her headache get worse when it's close the next dose. Headache: intermittent, lasts a couple of hours. Sometimes lasts more than 4 hours, a couple times per week. Sometimes she forgets to take sumatriptan. Has nausea with headache. She has brain fog when she is overstimulated. She started doing Pilates. She was able to tolerate a little bit. It's through [facility]. 15-20 people in a class, quieter environment. Her blood pressure is improving with physical therapy. PHYSICAL EXAMINATION: BP 111/64 Pulse 94 Wt 94.5 kg (208 lb 6.4 oz) BMI 33.64 kg/m?? Physical Exam Constitutional: Appearance: Normal appearance. HENT: Head: Normocephalic. Pulmonary: Effort: Pulmonary effort is normal. Neurological: Mental Status: alert. Psychiatric: Mood and Affect: Mood normal. Behavior: Behavior normal. Thought Content: Thought content normal. Present with her qualified networks computer consultant and Beau Mcpherson MBBS, 07/16/2023 10:19 AM Total time spent on this encounter, on the date of service including pre-visit review of separatelyobtained history, dyjo-xq-ahjv interaction performing medically appropriate physical exam, patient counseling/education, interpretation of diagnostic results, care coordination and documentation was 60 minutes. documented in this encounter Plan of Treatment Upcoming Encounters Date Type Department Care Team (Late st Contact Info) Description 09/16/2023 8:00 AM CDT Office Visit [facility] Psychology [address] [place] [address] Champ Buitrago, SARA Engel 701 [facility] [address] [place] [address] Room, Brazer Helper Induction Waiting [facility] [address] [place] [address] Scheduled Discharge Disposition: Discharged to home or self care (routine discharge) 09/24/2023 10:20 AM CDT Telemedicine [facility] Psychiatry Clinic [place] [address] [place] [address] Shahana Florence MD [address] [place] [address] Scheduled Discharge Disposition: Discharged to home or self care (routine discharge) 10/06/2023 10:00 AM CDT Office [facility] [address] [address] Beau Mcpherson MBBS 701 [facility] [address] [place], [place] [address] Scheduled Discharge Disposition: Discharged to home or self care (routine discharge) Scheduled Referrals Name Type Priority Associated Diagnoses Orde r Schedule REFERRAL TO PHYSICAL THERAPY Referral Routine Traumatic brain injury, without loss of consciousness, subsequent encounter Activity intolerance Neck pain Other migraine without status migrainosus, not intractable Ordered: 07/16/2023 REFERRAL TO OCCUPATIONAL THERAPY Referral Routine Traumatic brain injury, without loss of consciousness, subsequent encounter Activity intolerance Visual impairment Ordered: 07/16/2023 documented as of this encounter Visit Diagnoses Diagnosis Traumatic brain injury, without loss of consciousness, subsequent encounter- Primary Activity intolerance Other general symptoms Neck pain Cervicalgia Other migraine without status migrainosus, not intractable Visual impairment Unspecified visual loss documented in this encounter Additional Health Concerns Assessment Noted Time PHQ-9 Depression Total Score: 15 023 1:21 PM CDT PHQ-2 Depression Total Score: 3 01/04/20 23 1:21 PM CDT documented as of this encounter Care Teams Pricing Consultant Relationship Specialty Start Date End Date Caron Newton, HAND PRESSER [facility] [address] [place] [address] Speech Pathologist Speech Pathology 09/26/22 Shahana Florence MD [address] [place] [address] Psychiatrist Outpatient Psychiatry 02/19/23 documented as of this encounter
--- OUTSIDE RECORDS SUMMARY | 2023-09-15 07:06 | XMS_ITS | Encounter Summary ---
Author Organization [facility] Address [address] [place] [address]. [place] [address] Care Team Providers Care Television Picture Tube Rebuilder Name Role Phone Annabel Solorio MD Primary Care Provider [phone] Encounter Details Date Type Department Care Team (Late st Contact Info) Description 11/09/2021 [facility] Medical Advice [facility] [address] [place] [phone] [facility] Social History Tobacco Use Types Packs/Day Years Used Date Smoking Tobacco: Never Smokeless Tobacco: Never Alcohol Use Standard Drinks/Week Comments Yes 0 (1 standard drink = 0.6 oz pur e alcohol) very rarely PHQ-2 Answer Date Recorded PHQ-2 Score 0 03/31/2018 Sex and Gender Information Value Date Recorded Sex Assigned at Not on file Gender Identity Not on file Sexual Orientation Not on file documented as of this encounter Plan of Treatment Not on file documented as of this encounter Visit Diagnoses Not on filedocumented in this encounter Care Teams Television Picture Tube Rebuilder Relationship Specialty Start Date End Date Annabel Solorio MD [address] [facility] [address] [place] [address] PCP - General electrician helper 01/18/21 documented as of this encounter
--- OUTSIDE RECORDS SUMMARY | 2023-09-15 07:06 | XMS_ITS | Encounter Summary ---
Author Organization [facility] Address [address] [place] [address]. [place] [address] Care Team Providers Care Order Booker Name Role Phone Fitz Soto MD Unavailable Karissa Gagnon MD Unavailable [phone] Annabel Solorio MD Primary Care Provider [phone] Encounter Details Date Type Department Care Team (Late st Contact Info) Description 01/18/2021 Documentation Only INTERFACED REPORT Unknown, Provider Social History Tobacco Use Types Packs/Day Years [...] on file Sexual Orientation Not on file COVID-19 Exposure Response Date Recorded In the last month, have you been in contact with someone who was confirmed or suspected to have Coronavirus / COVID-19? Yes 01/18/2021 11:12 AM CDT documented as of this encounter Plan of Treatment Not on file documented as of this encounter Visit Diagnoses Not on filedocumented in this encounter Care Teams Order Booker Relationship Specialty Start Date End Date Annabel Solorio MD [address] [facility] [address] [address] [place] [address] PCP - General field training agent 01/18/21 Fitz Soto MD [address] [place] [address] Assigned PCP 10/18/18 09/28/21 Karissa Gagnon MD [address] [place] [address] Assigned Surgical Provider 01/14/20 documented as of this encounter
--- OUTSIDE RECORDS SUMMARY | 2023-09-15 07:06 | XMS_ITS | Referral Summary ---
Author Organization [facility] Address [address] [place] [address]. [place] [address] Care Team Providers Care Turret Lathe Machinist Name Role Phone Annabel Solorio MD Primary Care Provider [phone] Allergies Active Allergy Reactions Criticality Noted Date Comments Cefprozil 04/23/2004 cefzil Latex 04/18/2011 Sulfa Antibiotics 04/23/2004 Medications Medication Sig Dispensed Refills Start Date End Date Status norethindrone-ethiny l estradiol (04/12) 1-20 MG-MCG per tablet Take 1 tablet by mouth daily Active Escitalopram Oxalate (LEXAPRO PO) Take 20 mg by mouth Active clindamycin (CLEOCIN) 150 MG capsuleIndications:C ellulitis of left axilla Take 3 capsules (450 mg) by mouth 3 times daily 63 capsule 09/21/2019 Active Active Problems Problem Noted Date Diagnosed Date CARDIOVASCULAR SCREENING; LDL GOAL LESS THAN 160 01/21/2010 Resolved Problems Problem Noted Date Diagnosed Date Resolved Date Ovarian cyst 01/02/2012 09/23/2018 Ovarian cyst 12/25/2011 09/23/2018 Overview: Problem list name updated by automated process. Provider to review Immunizations Name Administration Dates Next Due Influenza (IIV3) PF 12/26/2010 Influenza Vaccine 18-64 (Flublok) 03/12/2019 Influenza Vaccine >6 months,quad, PF 12/21/2016, 11/22/2016,12/29/2013 Influenza Vaccine, 6+MO IM ( QUADRIVALENT W/PRESERVATIVES) 12/26/2018 TDAP (Adacel,Boostrix) 03/07/2008 Social History Tobacco Use Types Packs/Day Years Used Date Smoking Tobacco: Never Smokeless Tobacco: Never Alcohol Use Standard Drinks/Week Comments Yes 0 (1 standard drink = 0.6 oz pur e alcohol) very rarely PHQ-2 Answer Date Recorded PHQ-2 Score 0 03/31/2018 Adolescent Education Answer Date Record ed Getting School Help Needed Not on file 01/05 Sex and Gender Information Value Date Recorded Sex Assigned at Not on file Gender Identity Not on file Sexual Orientation Not on file Last Filed Vital Signs Vital Sign Reading Time Taken Comments Blood Pressure 115/82 01/18/2021 12:45 PM CDT Pulse 84 01/18/2021 12:45 PM CDT Temperature 36.5 ??C (97.7 ??F) 01/18/2021 11:13 AM C DT Respiratory Rate 18 01/18/2021 11:13 AM CDT Oxygen Saturation 98% 01/18/2021 11:13 AM CDT Inhaled Oxygen Concentration - - Weight 78 kg (172 lb) 01/18/2021 11:13 AM CDT Height 167.6 cm (5' 6) 01/18/2021 11:13 AM CDT Body Mass Index 27.76 01/18/2021 11:13 AM CDT Plan of Treatment Not on file Procedures Procedure Name Priority Date/Time Associated Diagnosis Comments BASIC METABOLIC PANEL STAT 01/18/2021 11:34 AM CDT LIPID REFLEX TO DIRECT LDL PANEL Routine 03/30/2016 10:43 AM TILE AND MARBLE INSTALLER Encounter for routine adult health examination without abnormal findings PAP SMEAR - HIM PATIENT REPORTED Routine 01/23/2016 from Last 3 Months or Most Recently Relevant to Health Maintenance Results * (ABNORMAL) Basic metabolic panel (BMP) (01/18/2021 11:34 AM CDT) Sodium 138 133 - 144 mmol/L 01/18/2021 12:12 PM CDT LABORATORY Potassium 3.6 3.4 - 5.3 mmol/L 01/18/2021 12:12 PM CDT LABORATORY Chloride 105 94 - 109 mmol/L 01/18/2021 12:12 PM CDT LABORATORY Carbon Dioxide (CO2) 25 20 - 32 mmol/L 01/18/2021 12:12 PM CDT LABORATORY Anion Gap 8 3 - 14 mmol/L 01/18/2021 12:12 PM CDT LABORATORY Urea Nitrogen 7 7 - 30 mg/dL 01/18/2021 12:12 PM CDT LABORATORY Creatinine 0.66 0.52 - 1.04 mg/dL 01/18/2021 12:12 PM CDT LABORATORY Calcium 8.4(L) 8.5 - 10.1 mg/dL 01/18/2021 12:12 PM CDT LABORATORY Glucose 140(H) 70 - 99 mg/dL 01/18/2021 12:12 PM CDT LABORATORY GFR Estimate >90 >60 mL/min/1.7 3m2 01/18/2021 12:12 PM CDT LABORATORY Comment:As of October 01, 2020, eGFR is calculated by the CKD-EPI creatinine equation, without race adjustment. eGFR can be influenced by muscle mass, exercise, and diet. The reported eGFR is an estimation only and is only applicable if the renal function is stable. Blood STRUCTURE OF RIGHT UPPER LIMB / Unknown Venipuncture / Unknown 01/18/2021 11:34 AM CDT 01/18/2021 11:48 AM CDT Ap Maxwell APRN SPOT CHECKER LAB - BLOOD O RDERABLES LABORATORY [facility] [address] Lab (1st floor, no room number) [place] [address], [facility] [phone] * (ABNORMAL) Lipid panel reflex to direct LDL (03/30/2016 10:43 AM TILE AND MARBLE INSTALLER) Cholesterol 192 <200 mg/dL [facility] Triglycerides 148 <150 mg/dL [facility] HDL Cholesterol 60 >49 mg/dL [facility] LDL Cholesterol Calculated 102(H) <100 mg/dL [facility] Comment: Above desirable: ??100-129 mg/dl Borderline High: ??130-159 mg/dL High: ? 160-189 mg/dL Very high: ? >189 mg/dl Non HDL Cholesterol 132(H) <130 mg/dL [facility] Comment: Above Desirable: ??130-159 mg/dl Borderline high: ??160-189 mg/dl High: ? 190-219 mg/dl Very high: ? >219 mg/dl Blood specimen (specimen) 03/30/2016 10:43 AM TILE AND MARBLE INSTALLER 03/30/2016 10:44 AM TILE AND MARBLE INSTALLER Marium Kraft MARBLE CLEANER LAB - BLOOD ORDERABL ES [facility] [address] [place] [address] * PAP Smear - HIM Patient Reported (01/23/2016) PAP Smear - HIM Patient Reported Negative EXTERNAL LAB 01/23/2016 Narrative EXTERNAL LAB - 01/23/2016 Please abstract the following data from this visit with this patient into the appropriate field in Epic: ? Pap smear done on this date: 01/2016 (approximately), by this group: [facility], results were normal. Patient Reported LABORATORY EXTERNAL LAB External Lab from Last 3 Months or Most Recently Relevant to Health Maintenance Care Teams Turret Lathe Machinist Relationship Specialty Start Date End Date Annabel Solorio MD [address] [address] PCP - General superior court judge 01/18/21
--- OUTSIDE RECORDS SUMMARY | 2023-09-15 07:06 | XMS_ITS | Encounter Summary ---
Author Organization [facility] Address [address] [place] [address] Phone Care Team Providers Care Wool Merchant Name Role Phone Caron Newton [facility] Unavailable Unavailab Shahana Owen MD Unavailable [phone] Reason for Visit * Reason Onset Date Comments Psych Medication Management 06/25/2023 Encounter Details Date Type Department Care Team (Late st Contact Info) Description 06/25/2023 10:40 AM CDT Telemedicine [facility] [address] [place] [address] Shahana Florence MD [address] [place] [address] Recurrent major depressive disorder, in partial remission [...] on file documented as of this encounter Patient Instructions * Patient Instructions* Shahana Florence MD - 06/25/2023 10:40 AM CDT Only the psychiatric medicines on this list were confirmed at this visit. Please review the other medicines on this list with the person who prescribed them to make sure that they are correct. Clinic Information Clinic Hours Telephone Number [facility] Adult Outpatient [facility] Clinic 8:00am-4:30pm Friday-Friday [phone] Parking information Free parking available in the surface lot directly behind the [facility].Trade Show Specialist staff in the clinic will provide you with the parking code at the end of your clinic visit. Appointment Scheduling We encourage you to schedule your next visit in the clinic at the time of your appointments. Our schedules are very full and scheduling at the conclusion of each clinic visit will assure you a timely return visit. If you are unable to attend your appointment for any reason, you need to contact us 24 hours in advance to cancel so we have the opportunity to fill your spot in the schedule. Multiple failures to cancel without 24 hour notice could result in our inability to continue your care in this clinic. Medication Refills If you are in need of medication refills, contact your pharmacy directly and they will put through a request on your behalf. Please allow 5 business days for processing of refill requests. Emergencies If you are experiencing a medical emergency, call 911 or go immediately to the emergency department closest to you. If you are experiencing a mental health emergency, you can visit the Acute Psychiatric Services (APS) Department at [facility], [address] [place] [address]. [phone]. The APS department is open 24 hours a day, seven days a week. APS is located adjacent to the Emergency Department on the main floor of the [facility]. For urgent needs that can wait until the clinic is open, please call the clinic at [phone] andleave a message for our triage nurse. Requests for medication changes will not be addressed after hours or on weekends. Forms/Paperwork Requests We do our best to get forms and paperwork requests completed as soon as possible, however, due to the large volume of requests we receive you should allow 7-10 business days for completion of forms and requests for paperwork or copies of your medical record. Questions/Requests If you have non-emergent questions or a need to speak to clinic staff, please contact our office at [phone] to leave a message. Typically calls are returned by the end of the day. You can be assured that a provider or triage nurse will call you back within one business day. Anjel As a patient of [facility], you are able to access an on-line version of your medical record at [facility] called Anjel. If you are not currently active on [facility], please speak to the clinical reimbursement specialist during your visit to get set up or call our office at [phone]. [facility] allows you to leave messages and schedule appointments electronically and does not require a phone call to the clinic. Pharmacy [facility] has two patient pharmacies for your convenience: [facility] Pharmacy: Is located on the first level of the [facility] Building and services all the clinics. Hours of operation: Friday-Friday 8:00AM to 6:00PM Friday 9:00AM to 1:00PM Phone number: [facility]: Is located in the lower level of the [facility] building and services employee and transplant/specialty needs. Hours of operation: Friday-Friday 7:30AM to 6:00PM Phone numbers: [facility]: Transplant/Specialty: Pharmacy Refill Line Information Please have the following information ready, then call [phone]: 1.) Name (First and Last) 2.) Hospital Number (Medical record #) 3.) Date of 4.) Telephone number where you may be reached (including area code) Important Mental Health Resources Acute Psychiatric Services (APS) Department - [facility] - [phone] [facility] Hospital Program - [facility] - [phone] Day Treatment Program - [facility] - [phone] [facility] Front Door Access - [phone] [facility] Behavioral Health Case Management - [phone] [facility]) - [phone] [facility] Chemical Health Assessment Services - [phone] documented in this encounter Progress Notes * Shahana Florence MD - 06/25/2023 10:40 AM CDT Formerly named [facility] Psychiatry [facility] Patient Name: Una Alvarez : 1980 Date of Service: 06/25/23 Medical Decision Making: #Major depressive disorder, recurrent, in partial remission Probably had even prior to TBI but not diagnosed-now symptoms amplified after TBI in May 2022 (hit head on a trailer at work). Now experiencing increased irritability, anxiety, trouble sleeping, easily gets overwhelmed. The only medication she has taken for anxiety/depression is lexapro and this was very helpful in the past. At times mood still more irritable than she feels like it should but feels like this is manageable.Planning ahead to do some fun events with family, acknowledges she may need breaks or some accommodations (sunglasses, ear plugs) but looking forward to it. Advocates for no med changes today. -continue lexapro 30 mg po daily -Continue working with TBI program -Continue using cpap-going to try out different mask, still getting adjusted to this #Generalized anxiety disorder Tolerating buspar, brain zaps seem to have subsided, overall does feel like anxiety is better managed, has kind of forgotten/hasn't need to use propranolol but plans to bring this with for some upcoming events that could be more anxiety-provoking (going to [employer] and [employer] game) Advocates for no med changes today. -Continue Buspar 10 mg po BID -Continue propranolol 10 mg po TID prn for anxiety SSRI #TBI Sustained in May 2022 after hitting head at work which was followed by changes in her vision, cognition and headache. Had OT eval for driving Consults by Tory Chahal, OTR/L (06/04/2023 09:00). Okay to drive a low speeds, limit freeway driving. May resume doing vision OT this summer. Headaches getting better See plan for MDD Follow-up in 3 months, or sooner if needed History of Present Illness: Una Alvarez is a 43 y.o. female with pmhx of anxiety, depression, TBI May 2022, here for psychiatric medication mgmt f/u. Last seen on 05/28/23, no med changes made. Consults by Tory Chahal OTR/L (06/04/2023 09:00) Last week or so-better, for a little bit headaches were more intense. Headaches now not as bad. has said in last week or so she seems to be doing good Doesn't think she needs changes at the moment to medications. Brain zaps-not having anymore Propranolol-hasn't been taking much, kind of forgets about it? [facility]-this is a big step. Going to bring headphones, ear buds. Will bring sunglasses and a hat. Got a room. Then can take break if needed. [place] having all [place] 1st responders come to skilled trades teacher tomorrow Vision OT-not covered by insurance, headaches were so intense that it didn't feel productive working on it. Was having trouble getting HW done. Decided to take a break for a while. Thinking of resuming this summer. Mood-can still get irritated about things she thinks she shouldn't be-but overall pretty good Headahces were often making the day worse. Cpap-feels like she's sleeping worse when she wears it. Has to put it on when she's super tired andfalling asleep. Sometimes takes it off in middle of night. Current Psychiatric Medications: Psychiatric medications at start of today's visit: Lexapro 30 mg po daily Buspar 10 mg po BID Propranolol 10 mg po TID prn Substance Use: Rare alcohol use Safety Screening: SI: Ms. Alvarez reports in interview no suicidal thoughts. HI: She reports no violent ideation. She reports current abuse concerns: none. Most Recent C-SSRS Calculated C-SSRS Risk Score (Since Last Contact): No Risk Identified - Provide treatment per regular standard of care, complete SAFE-T assessment only if needed based on clinical judgment (06/25/2023 10:58 AM) Objective: Lipids: No results found for: LPCHOL, HDL, TRIGLYCERIDE, CALCLDL, NHDLCALC, H1AC: No results found for: HGBA1C, ESTAVGLUC, TSH: No results found for: TSH, CBC: No results found for: WBC, RBC, HGB, HCT, MCV, MCH, MCHC, RDW, PLT, MPV, NRBCA, IANC, IGAB, NEUTNO, LYMPHAB, MONOABSNO, EOSNUMB, BASO, BMP: No results found for: CO2, GLU, UN, CR,CA, NA, K, CHLORIDE, ANGAP, GFRB, GFRW, LFT: No results found for: TPRO, ALBUMIN,TBILI, BILIDIR, ALP, ALT, AST, and Vitamin D: No results found for: [id number] There were no vitals taken for this visit. Mental Status Exam Appearance: Neatly and casually groomed, appears stated age, NAD Behavior/Relation to Examiner/Demeanor: Cooperative, Engaged and Pleasant Motor Activity/EPS/Muscle Strength and Tone: Normal in upper body Gait: Not observed Speech Rate: Normal Speech Volume: Normal Speech Articulation: Normal Speech Coherence: Normal Speech Spontaneity: Normal Mood: overall pretty good Affect: Appropriate/mood-congruent Associations: Logical/goal-directed Thought Process Rate: Normal Thought Content: No SI or HI, no paranoia or delusions. Abnormal Perception: None Sensorium: Alert, Orientated to person, Orientated to place, Orientated to date/time and Orientatedto situation Attention/Concentration: Adequate for interview. Memory: Recent and remote memory grossly intact to interview. Language: Intact Fund of Knowledge/Intelligence: Estimate to be average. Abstraction: Normal Insight: Adequate Judgement: Adequate Telemedicine: MyChart Video Visit: This telemedicine visit is conducted by audio and video technology between thepatient and provider. Informed consent was provided during e-check in and signed by patient. Patient was offered opportunity to ask any questions. Patient's Physical Location: Home Provider's Physical Location: Onsite at [facility] Participants in this Telemedicine Visit other than the patient/provided included: NA This visit started at: 10:36 AM and concluded at: 10:50 AM. Shahana Florence MD, 06/25/2023 11:00 AM Adult Psychiatry Clinic documented in this encounter Plan of Treatment Upcoming Encounters Date Type Department Care Team (Late st Contact Info) Description 09/16/2023 8:00 AM CDT Office Visit [facility] Psychology [address] [facility] [address] [place], [place] [id number] Champ Buitrago, Ps, 701 [facility] [address] [place] [address] Room, Science Intern Waiting [facility] [address] [place] [address] Scheduled Discharge Disposition: Discharged to home or self care (routine discharge) 09/24/2023 10:20 AM CDT Telemedicine [facility] [address] [place] [address] Shahana Florence MD [address] [place] [address] Scheduled Discharge Disposition: Discharged to home or self care (routine discharge) 10/06/2023 10:00 AM CDT Office Visit [facility] [address] [address] Beau Mcpherson MBBS 701 [facility] [address] [place], [place] [id number] Scheduled Discharge Disposition: Discharged to home or self care (routine discharge) documented as of this encounter Visit Diagnoses Diagnosis Recurrent major depressive disorder, in partial remission (CMS)- Primary Generalized anxiety disorder Traumatic brain injury, without loss of consciousness, sequela (CMS) documented in this encounter Additional Health Concerns Assessment Noted Time PHQ-9 Depression Total Score: 15 023 1:21 PM CDT PHQ-2 Depression Total Score: 3 01/04/20 23 1:21 PM CDT documented as of this encounter Care Teams Wool Merchant Relationship Specialty Start Date End Date Caron Newton, DIESEL POWERPLANT SUPERVISOR CCC [address] [place] [address] Speech Pathologist Speech Pathology 09/26/22 Shahana Florence MD [address] [place] [address] Psychiatrist Outpatient Psychiatry 02/19/23 documented as of this encounter
--- OUTSIDE RECORDS SUMMARY | 2023-09-15 07:06 | XMS_ITS | Encounter Summary ---
Author Organization [facility] Address [address] [place] [address] Phone Care Team Providers Care Director Visual Name Role Phone Caron Newton [facility] Unavailable Unavailab Shahana Owen MD Unavailable [phone] Reason for Visit * Reason Onset Date Comments Refill Request 07/11/2023 gabapentin Encounter Details Date Type Department Care Team (Late st Contact Info) Description 07/11/2023 Refill [facility] [address] [place] [phone] Beau Mcpherson MBBS [address] [phone] Refill Request (gabapentin) Social History Tobacco Use Types Packs/Day Years [...] Telephone Encounter - Shavonne Betancourt RN - 07/14/2023 9:29 AM CDT D: Medication Refill Request: Medication: Requested Prescriptions Pending Prescriptions Disp Refills GABApentin (NEURONTIN) 300 mg oral capsule [Pharmacy Med Name: Gabapentin Oral Capsule 300 MG] 90 capsule 0 Sig: Take 1 capsule (300 mg) by mouth 3 times daily. Last Refilled: 05/28/23 with 30 day supply. Comments re: frequency, dose, gaps in medication: ordered 05/27 with 30 day supply. Last Clinic Office Visit: 04/28/23 Per MARLEY: Continue with gabapentin 300mg three times a day. Next Scheduled Office Visit: 07/16/23 R/P: Refill Prescription: Routed: Medication is controlled or not on refill protocol and Medication Refill Protocol is due ornot listed in the health maintenance (order pended) Shavonne Betancourt, RN, 07/14/2023 9:29 AM documented in this encounter Plan of Treatment Upcoming Encounters Date Type Department Care Team (Late st Contact Info) Description 09/16/2023 8:00 AM CDT Office Visit [facility] Psychology 701 [facility] [address] [place] [address] Champ Buitrago PsyD, LP 701 [facility] [address] [place] [address] Room, Linux Server Administrator Waiting [facility] [address] [place] [address] Scheduled Discharge Disposition: Discharged to home or self care (routine discharge) 09/24/2023 10:20 AM CDT Telemedicine [facility] Psychiatry Clinic [facility] [address] [place] [address] Shahana Florence MD [address] [place] [address] Scheduled Discharge Disposition: Discharged to home or self care (routine discharge) 10/06/2023 10:00 AM CDT Office Visit [facility] [address] [place] [address] Beau Mcpherson MBBS 701 [facility] [address] [place] [address] Scheduled Discharge Disposition: Discharged to home or self care (routine discharge) documented as of this encounter Visit Diagnoses Not on filedocumented in this encounter Additional Health Concerns Assessment Noted Time PHQ-9 Depression Total Score: 15 023 1:21 PM CDT PHQ-2 Depression Total Score: 3 01/04/20 23 1:21 PM CDT documented as of this encounter Care Teams Director Visual Relationship Specialty Start Date End Date Caron Newton, MANAGER RESOURCE [facility] [address] [place] [address] Speech Pathologist Speech Pathology 09/26/22 Shahana Florence MD [address] [place], [place] [id number] Psychiatrist Outpatient Psychiatry 02/19/23 documented as of this encounter
--- OUTSIDE RECORDS SUMMARY | 2023-09-15 07:06 | XMS_ITS | Clinical Summary ---
Author Organization [place] Address [address] [place] [address]. [place] [address] Care Team Providers Care Director On Air Name Role Phone Annabel Solorio MD Primary Care Provider [phone] Allergies Active Allergy Reactions Criticality Noted Date [...] ( QUADRIVALENT W/PRESERVATIVES) 12/26/2018 TDAP (Adacel,Boostrix) 03/07/2008 Family History Medical History Relation Comments Gastrointestinal Disease Brother ulcerat duane colitis, 6 feet of colon removed Lipids Father Respiratory Maternal Grandfather emphazema Cerebrovascular Disease Maternal Grandmother Hypertension Paternal Grandmother Breast Cancer No family hx of Cancer - colorectal No family hx of Diabetes No family hx of Relation Status Comments Brother Father Alive Maternal Grandfather Maternal Grandmother Mother Alive Paternal Grandmother Social History Tobacco Use Types Packs/Day Years [...] 01/18/2021 11:13 AM CDT Plan of Treatment Health Maintenance Due Date Last Done Comments ADVANCE CARE PLANNING 1981 ANNUAL REVIEW OF HM ORDERS 1981 MAMMO SCREENING 1981 HIV SCREENING 02/11/1996 HEPATITIS C SCREENING 1999 HEPATITIS B IMMUNIZATION (1 of 3 - 19+ 3-dose series) 02/11/2000 DTAP/TDAP/TD IMMUNIZATION (2 - Td or Tdap) 03/07/2018 03/07/2008 LIPID 03/30/2021 03/30/2016, 10/0 10/2014, 04/18/2011 PAP 11/16/2021 11/16/2020, 08/08/2020, 01/23/2016, Additional history exists COVID-19 Vaccine ( season) 2022 YEARLY PREVENTIVE VISIT 11/29/2022 11/30/19, 11/16/2020, 08/13/2018, Additional history exists PHQ-2 (once per calendar year) 2023 03/30/2016, 11/14/2014 INFLUENZA VACCINE (Season Ended) 2023 03/12/2019, 12/26/2018, 12/21/2016, Additional history exists GLUCOSE 01/19/2024 01/18/2021, 12/23, 12/29/2014, Additional history exists HPV IMMUNIZATION Aged Out No longer e ligible based on patient's age to complete this topic IPV IMMUNIZATION Aged Out No longer e ligible based on patient's age to complete this topic MENINGITIS IMMUNIZATION Aged Out No l onger eligible based on patient's age to complete this topic Pneumococcal Vaccine: Pediatrics (0 to 5 Years) and At-Risk Patients (6 to 64 Years) Aged Out No longer eligible based on patient's age to complete this topic RSV MONOCLONAL ANTIBODY Aged Out No l onger eligible based on patient's age to complete this topic Procedures Procedure Name Priority Date/Time Associated Diagnosis Comments BASIC METABOLIC PANEL STAT 01/18/2021 11:34 AM CDT LIPID REFLEX TO DIRECT LDL PANEL Routine 03/30/2016 10:43 AM PALLIATIVE CARE NURSE Encounter for routine adult health examination without abnormal findings PAP SMEAR - HIM PATIENT REPORTED Routine 01/23/2016 from Last 3 Months or Most Recently Relevant to Health Maintenance Results * (ABNORMAL) Basic metabolic panel (BMP) (01/18/2021 11:34 AM CDT) Sodium 138 133 - 144 mmol/L 01/18/2021 12:12 PM CDT [facility] Potassium 3.6 3.4 - 5.3 mmol/L 01/18/2021 12:12 PM CDT [facility] Chloride 105 94 - 109 mmol/L 01/18/2021 12:12 PM CDT [facility] Carbon Dioxide (CO2) 25 20 - 32 mmol/L 01/18/2021 12:12 PM CDT [facility] Anion Gap 8 3 - 14 [...] 01/18/2021 11:48 AM CDT Ap Maxwell APRN TAX ACCOUNTING ASSISTANT LAB - BLOOD O RDERABLES LABORATORY [facility] [address] Lab (1st floor, no room number) [place] [address], [facility] [phone] * (ABNORMAL) Lipid panel reflex to direct LDL (03/30/2016 10:43 AM PALLIATIVE CARE NURSE) Cholesterol 192 <200 mg/dL [facility] Triglycerides 148 <150 mg/dL [facility] HDL Cholesterol 60 >49 mg/dL [facility] LDL Cholesterol Calculated 102(H) <100 mg/dL [facility] Comment: Above desirable: ??100-129 mg/dl Borderline High: ??130-159 mg/dL High: ? 160-189 mg/dL Very high: ? >189 mg/dl Non HDL Cholesterol 132(H) <130 mg/dL [facility] Comment: Above Desirable: ??130-159 mg/dl Borderline high: ??160-189 mg/dl High: ? 190-219 mg/dl Very high: ? >219 mg/dl Blood specimen (specimen) 03/30/2016 10:43 AM PALLIATIVE CARE NURSE 03/30/2016 10:44 AM PALLIATIVE CARE NURSE Marium Kraft RECORD TABULATING CLERK LAB - BLOOD ORDERABL ES [facility] [address] [place], [place] [address] * PAP Smear - HIM Patient Reported [...] Recently Relevant to Health Maintenance Care Teams Director On Air Relationship Specialty Start Date End Date Annabel Solorio MD [address] [facility] [address] [place] [address] PCP - General landing gear mechanic 01/18/21
--- OUTSIDE RECORDS SUMMARY | 2023-09-15 07:06 | XMS_ITS | Encounter Summary ---
Author Organization [place] Address [address] [place] [address]. [place] [address] Care Team Providers Care Hotel Security Officer Name Role Phone Bhargavi Noel MD Primary Care Provid er Clarissa Shah PA-C Primary Care Pr ovider Annabel Solorio MD Primary Care Provider + [phone] Marium Kraft LIFE SCIENCES MANAGER Unavailable [phone] Dunia Randall MD Unavailable + Marium Kraft LIFE SCIENCES MANAGER Unavailable [phone] Marium Kraft LIFE SCIENCES MANAGER Unavailable [phone] Dunia Randall MD Unavailable + Fitz Soto MD Primary Care Provider [phone] Fitz Soto MD Unavailable [phone] Rasta Solorio PA-C Primary Care Provider [phone] Karissa Gagnon MD Unavailable [phone] Annabel Solorio MD Primary Care Provider + [phone] Encounter Details Date Type Department Care Team (Late st Contact Info) Description 05/19/2014 [facility] [address] [place] [address] Tae Hernadez, [facility] Social History Tobacco Use Types Packs/Day Years Used Date Smoking Tobacco: Never Smokeless Tobacco: Never Alcohol Use Standard Drinks/Week Comments Yes 0 (1 standard drink = 0.6 oz pur e alcohol) very rarely Sex and Gender Information Value Date Recorded Sex Assigned at Not on file Gender Identity Not on file Sexual Orientation Not on file documented as of this encounter Plan of Treatment Not on file documented as of this encounter Visit Diagnoses Not on filedocumented in this encounter Care Teams Hotel Security Officer Relationship Specialty Start Date End Date Bhargavi Noel MD [address] [facility] [address] [place] [address] PCP - General flame planer 12/25/11 11/20/14 Clarissa Shah PA-C [address] [place] [address] PCP - General Physician Yarn Preparation Supervisor 11/21/14 09/07/15 Annabel Solorio MD [address] [facility] [address] [place] [address] PCP - General flame planer 09/08/15 09/22/18 Marium Kraft LIFE SCIENCES MANAGER [facility] [address] [place] [address] PCP - Assigned PCP 01/26/17 02/21/18 Dunia Randall MD PRIMARY ENT [address] [facility] [address] [place] [address] PCP - Assigned PCP 02/22/18 03/21/18 Marium Kraft LIFE SCIENCES MANAGER [facility] [address] [place] [address] PCP - Assigned PCP 03/22/18 05/26/18 Fitz Soto MD PRIMARY ENT [address] [place] [address] PCP - General Family Practice 09/23/18 09/12/19 Rasta Solorio PA-C [facility] [address] [address] PCP - General Physician Yarn Preparation Supervisor 09/13/19 01/17/21 Annabel Solorio MD [address] [facility] [address] [place] [address] PCP - General flame planer 01/18/21 Marium Kraft NP [facility] [address] [place] [address] Assigned PCP 03/22/18 06/06/18 Dunia Randall MD PRIMARY ENT [address] [facility] [address] [place] [address] Assigned PCP 02/08/18 10/17/18 Fitz Soto MD [address] [place] [address] Assigned PCP 10/18/18 09/28/21 Karissa Gagnon MD [address] [place] [address] Assigned Surgical Provider 01/14/20 03/17/21 documented as of this encounter
--- NOTE | 2023-09-15 07:15 | CRLHL7_ITS ---
For Patients: As a result of the Cures Act, medical imaging exams and procedure reports are released immediately into your electronic medical record. You may view this report before your referring provider. If you have questions, please contact your health care provider. INDICATION: Abdominal pain; elevated liver function tests. COMPARISON: None. TECHNIQUE: Ultrasound examination of the right upper quadrant of the abdomen. FINDINGS: The liver is measuring 18.5 cm in the maximum vertical dimension. Diffuse increase in echogenicity of the liver indicating fatty infiltration of the liver. Suboptimal visualization of the pancreas secondary to increased bowel gas in the upper abdomen. No evidence of cholelithiasis. Nondilated common bile duct measuring 0.3 cm in diameter. No pericholecystic fluid collections. Negative sonographic Mascorro`s sign. Right kidney is measuring 11.5 x 4.4 x 5.1 cm without any obstructive uropathy or perinephric pathology. Proximal abdominal aorta measures 2.5 cm. IMPRESSION: 1. Mild hepatomegaly with the liver measuring 18.5 cm in maximum vertical dimension. 2. Diffuse fatty infiltration of the liver. 3. No other abnormalities are identified. Dictated by Tania Alberts MD @ 09/15/2023 1:30:14 PM (Electronically Signed)
== END 2023-09-15 07:04 | disposition home or self-care (01) ==
LOC: US 07:03
PROVIDERS: PCP Family Medicine; Visit Provider Family Medicine
DX: R10.9 Unspecified abdominal pain (principal); K76.0 Fatty (change of) liver, not elsewhere classified; R16.0 Hepatomegaly, not elsewhere classified; R79.89 Other specified abnormal findings of blood chemistry
CPT/HCPCS: 76705

== ENCOUNTER 2024-11-23 11:15 | Outpatient (RCR) | payer OTHER, SELFPAY | END 2025-03-23 23:59 | disposition home or self-care (01) | PROVIDERS: PCP Family Medicine; Visit Provider Orthopaedic Surgery | DX: M75.52 Bursitis of left shoulder (principal); M75.51 Bursitis of right shoulder; Z51.89 Encounter for other specified aftercare | CPT/HCPCS: 97110; 97140; 97162 ==

== ENCOUNTER 2025-02-25 09:00 | Observation (INO) | payer OTHER, SELFPAY ==
[2025-02-25 09:03] VITALS: BP 117/81; PULSE 92; RESP 16; TEMP 36.7; O2SAT 97; BMI 33.0
--- NOTE | 2025-02-25 09:22 | CRLHL7_ITS ---
For Patients: As a result of the Century Cures Act, medical imaging exams and procedure reports are released immediately into your electronic medical record. You may view this report before your referring provider. If you have questions, please contact your health care provider. INDICATION: Abd pain and rectal bleeding TECHNIQUE: CT of the abdomen and pelvis was obtained with 97 mL of Isovue 370 intravenous contrast. Please note that all CT scans at this facility use dose modulation, iterative reconstruction, and/or weight-based dosing when appropriate to reduce radiation dose to as low as reasonably achievable. COMPARISON: None. FINDINGS: Lower thorax: Normal. Liver and biliary tree: Normal. Gallbladder: Normal. Spleen: Normal. Pancreas: Normal. Adrenal glands: Normal. Kidneys and ureters: No hydronephrosis or obstructing renal calculi. Gastrointestinal tract: [id number] submucosal edema of the descending colon and to a lesser extent of the sigmoid colon and rectum. Status post appendectomy. No evidence of bowel obstruction. Peritoneal cavity: Mild fat stranding and mesenteric edema surrounding the descending colon. Bladder: Underdistended. Moderate wall thickening. Pelvic organs: Normal. Vasculature: Normal. Lymph nodes: Normal. Abdominal wall: Normal. Musculoskeletal: Normal. IMPRESSION: 1. Mild to moderate submucosal edema of the descending colon and to a lesser extent of the sigmoid colon and rectum with mild surrounding fat stranding and associated mesenteric edema. Findings are compatible with infectious or inflammatory proctocolitis. 2. Moderate urinary bladder wall thickening may be accentuated by underdistention. Consider correlation with urinalysis to assess for infection. Please note that all CT scans at this facility use dose modulation, iterative reconstruction, and/or weight-based dosing when appropriate to reduce radiation dose to as low as reasonably achievable. Dictated by Phill Fernandez MD @ 02/25/2025 10:11:14 AM (Electronically Signed)
--- NOTE | 2025-02-25 09:23 | ED.ABDPAIN ---
HPI - Abdominal Pain General Chief Complaint: GI Bleed Stated Complaint: Abdominal pain, bloody stool Time Seen by Provider: 02/25/25 09:15 History of Present Illness HPI narrative: Patient is a 45-year-old woman who woke up overnight with mid abdominal pain. Pain is sharp in extends through to her back. She has also been passing bright red blood per rectum. She has no reflux symptoms no fevers no chills night sweats nausea no vomiting. Patient takes no anticoagulants. She has not been drinking alcohol. She states that she is not . She has had no similar symptoms previously. Patient had a colonoscopy last year as she has history of colon polyps. No other significant symptoms. Pain is 6. Related Data Home Medications ?Medication ?Instructions ?Recorded ?Confirmed escitalopram oxalate 20 mg tablet 20 mg PO QDAY 10/11/21 02/25/25 (Lexapro) norethindrone acetate 1 mg-ethinyl 1 tab PO QDAY 10/11/21 02/25/25 estradiol 20 mcg tablet (Junel) escitalopram oxalate 10 mg tablet 10 mg PO DAILY 05/02/23 02/25/25 sumatriptan succinate 50 mg tablet mg PO 05/02/23 06/16/24 buspirone 15 mg tablet 15 mg PO BID 06/16/24 02/25/25 hyoscyamine sulfate 0.125 mg 0.125 mg sublingual Q4H PRN 06/16/24 02/25/25 sublingual tablet nortriptyline 10 mg capsule 10 mg PO QPM 06/16/24 02/25/25 Allergies Allergy/AdvReac Type Severity Reaction Status Date / Time Sulfa (Sulfonamide Allergy Unknown unknown Verified 02/25/25 09:12 Antibiotics) latex Allergy Verified 02/25/25 09:12 Review of Systems Status of ROS Reports: 10 or more systems reviewed and unremarkable except as noted in History and below [facility] Medical History Sinus congestion ?R09.81 - Nasal congestion (ICD-10) GERD (gastroesophageal reflux disease) ?K21.9 - Gastro-esophageal reflux disease without esophagitis (ICD-10) Breast pain, left ?N64.4 - Mastodynia (ICD-10) Folliculitis ?L73.9 - Follicular disorder, unspecified (ICD-10) Obesity (BMI 30.0-34.9) ?E66.9 - Obesity, unspecified (ICD-10) Social History Smoking Status: Never smoker Do you use any of these nicotine containing products: None Second hand tobacco smoke exposure: No How often do you have a drink containing alcohol: 2-3 times a week How many standard drinks containing alcohol do you have on a typical day: 1 or 2 How often do you have six or more drinks on one occasion: Never AUDIT-C Alcohol total score: 3 Non-prescribed substance use: denies use service: No Exam Narrative: Exam Narrative: EXAM GENERAL: Patient appears comfortable and well. EYES: No scleral icterus. LYMPH: No supraclavicular or cervical lymphadenopathy. SKIN: Visible skin seen during exam normal or with benign process only. EXT: No dependent lower extremity pedal edema. HEART: Regular rate and rhythm with no murmurs, rubs, or gallops. LUNGS: Clear to auscultation bilaterally with no crackles or wheezes. ABD: Soft, non tender, non distended. PSYCH: Good eye contact, speech is not pressured. Const: Vital Signs, click to edit/add: Vital Signs - 24 hr 02/25/25 09:03 02/25/25 09:56 Temperature 98.0 F Pulse Rate [Pulse Oximeter] 92 91 Respiratory Rate 16 20 Blood Pressure [Ri ght Upper Arm] 117/81 130/75 Pulse Oximetry 97 94 Oxygen Delivery Me thod Room Air Room Air Course Course ED Course: Patient seen examined. Saline lock placed. Normal saline given. CBC comprehensive metabolic panel coags lipase lactate UA pending. CT abdomen pelvis pending. Vital Signs Vital signs: Initial Vital Signs Temperature 98.0 F 02/25/25 09:03 Temperature Source Oral 02/25/25 09:03 Pulse Rate 92 02/25/25 09:03 Respiratory Rate 16 02/25/25 09:03 Blood Pressure 117/81 02/25/25 09:03 Blood Pressure Mean 93 02/25/25 09:03 Pulse Oximetry 97 02/25/25 09:03 Oxygen Delivery Method Room Air 02/25/25 09:03 Vital Signs Temperature 98.0 F 02/25/25 09:03 Pulse Rate 92 02/25/25 09:03 Respiratory Rate 16 02/25/25 09:03 Blood Pressure 117/81 02/25/25 09:03 Pulse Oximetry 97 02/25/25 09:03 Oxygen Delivery Method Room Air 02/25/25 09:03 Temperature 98.0 F 02/25/25 09:03 Pulse Rate 91 02/25/25 09:56 Respiratory Rate 20 02/25/25 09:56 Blood Pressure 130/75 02/25/25 09:56 Pulse Oximetry 94 02/25/25 09:56 Oxygen Delivery Method Room Air 02/25/25 09:56 Medications Administered Medications: Discontinued Medications Generic Name Dose Route Start Last Admin Trade Name Freq PRN Reason Stop Dose Admin Sodium Chloride 1,000 mls @ 1,000 mls/hr 02/25/25 09:20 02/25/25 09:32 0.9 % Sodium Chloride 1000 Ml IV 02/25/25 10:19 1,000 mls/hr .Q1H BELÉN Administration MDM - Abdominal Pain MDM Narrative Medical decision making narrative: Patient presents with abdominal pain and bright red blood per rectum. Evaluation shows leukocytosis with stable hemoglobin. Vital signs are stable exam is largely unremarkable. The CT scan shows a intermittent colitis. She will be admitted to observation for serial hemoglobins and clear liquid status. Lab Data Labs: Lab Results 02/25/25 02/25/25 Range/Units : 09:30 WBC 14.06 H (4.50-11.00) K/uL RBC 4.49 (4.00-5.20) m/uL Hgb 13.7 (12.0-16.0) gm/dL Hct 40.4 (33.0-51.0) % MCV 90 (80-100) fL MCH 31 (26-34) pg MCHC 34 (32-36) gm/dL RDW Coeff of Mir 12.6 (11.5-15.5) % Plt Count 359 (140-440) K/uL Neut % (Auto) 80.7 H (42.0-72.0) % Lymph % (Auto) 14.3 L (20-44) % Tripp % (Auto) 4.3 (0.0-11.0) % Eos % (Auto) 0.3 (0.0-7.0) % Baso % (Auto) 0.3 (0.0-3.0) % Neut # (Auto) 11.30 H (1.7-7.0) K/uL Lymph # (Auto) 2.00 (0.90-2.90) K/uL Tripp # (Auto) 0.60 (0.00-0.90) K/UL Eos # (Auto) 0.00 (0.00-0.50) K/uL Baso # (Auto) 0.00 (0.00-0.30) K/uL Abs Immat Gran (auto) 0.00 (0.00-0.30) K/uL Imm/Tot Granulo (auto) 0.1 % INR 0.91 (0.91-1.10) APTT 24 (23-33) Seconds Sodium 132 L (135-149) mmol/L Potassium 4.1 (3.6-5.1) mmol/L Chloride 100 (96-114) mmol/L Carbon Dioxide 20 (20-32) mmol/L Anion Gap 12 (7-15) mEq/L BUN 12 (5-24) mg/dL Creatinine 0.7 (0.5-1.5) mg/dL Estimated Creat Clear 92.29 Estimated GFR 109 ml/min Glucose 112 (60-115) mg/dL Lactate 1.9 (0.5-1.9) mmol/L Calcium 8.7 (8.4-10.6) mg/dL Total Bilirubin 0.7 (0.1-1.5) mg/dL AST 27 (12-35) U/L ALT 29 (4-35) U/L Alkaline Phosphatase 59 (40-150) U/L Total Protein 7.0 (6.0-8.3) g/dL Albumin 4.3 (3.3-5.0) g/dL Lipase 76 (23-300) U/L Urine Color Yellow (Yellow) Urine Appearance Clear (Clear) Urine pH 6.0 (5.0-8.5) Ur Specific [address] 1.025 (1.000-1.030) Urine Protein Negative (Negative) Urine Glucose (UA) Negative (Negative) Urine Ketones Negative (Negative) Urine Blood Negative (Negative) Urine Nitrite Negative (Negative) Urine Bilirubin Negative (Negative) Urine Urobilinogen 0.2 (0.2-1.0) Ur Leukocyte Esterase Negative (Negative) Discharge Plan Discharge Clinical Impression: Colitis Patient Disposition: Admitted As Observation Condition: Stable Activity Level: Other Discharge Diet: Other
[2025-02-25 09:32] LABS: Appearance Urine Clear (Clear)
[2025-02-25 09:38] LABS: Lactate* 1.9 mmol/L (0.5-1.9)
[2025-02-25 09:40] LABS: Hematocrit* 40.4 % (33.0-51.0); Hemoglobin* 13.7 gm/dL (12.0-16.0); Immature Granulocytes Pct Auto 0.1 %; Mean Corpuscular HGB Conc 34 gm/dL (32-36); Mean Corpuscular Hemoglobin 31 pg (26-34); Mean Corpuscular Volume 90 fL (80-100); RDW Coefficient of Variation % 12.6 % (11.5-15.5); Red Blood Count* 4.49 m/uL (4.00-5.20); White Blood Count* 14.06 K/uL (4.50-11.00)
[2025-02-25 09:51] LABS: Immature Granulocytes Abs Auto 0.00 K/uL (0.00-0.30); Lymphocytes Absolute Auto 2.00 K/uL (0.90-2.90); Slide Review Reflex No
[2025-02-25 09:55] LABS: Chloride* 100 mmol/L (96-114)
[2025-02-25 09:56] VITALS: BP 130/75; PULSE 91; RESP 20; O2SAT 94
[2025-02-25 09:56] LABS: Anion Gap 12 mEq/L (7-15); Carbon Dioxide* 20 mmol/L (20-32); Potassium* 4.1 mmol/L (3.6-5.1); Sodium* 132 mmol/L (135-149)
[2025-02-25 09:57] LABS: INR 0.91 (0.91-1.10); Prothrombin Time 13.1 Seconds
[2025-02-25 09:59] LABS: Alanine Aminotransferase* 29 U/L (4-35); Alkaline Phosphatase* 59 U/L (40-150); Aspartate Amino Transferase* 27 U/L (12-35); Bilirubin Total* 0.7 mg/dL (0.1-1.5)
[2025-02-25 10:13] LABS: Albumin* 4.3 g/dL (3.3-5.0)
[2025-02-25 10:16] LABS: Blood Urea Nitrogen* 12 mg/dL (5-24); Calcium* 8.7 mg/dL (8.4-10.6); Creatinine* 0.7 mg/dL (0.5-1.5); Est. Creatinine Clearance* 92.29; Estimated Glomerular Filt Rate 109 ml/min; Glucose* 112 mg/dL (60-115); Total Protein* 7.0 g/dL (6.0-8.3)
[2025-02-25 11:05] VITALS: BP 138/82; PULSE 83; RESP 16; TEMP 36.8; O2SAT 98; BMI 32.2
--- NOTE | 2025-02-25 11:21 | PM.IMHP1 ---
Assessment and Plan Assessment and plan (1) Colitis: Problem comment: - with associated diarrhea - stool studies, C-Diff - clear liquid diet, IV pain management and anti-emetics - ADAT - patient will call [facility] for close outpatient f/u given new colitis and family history of IBD Status: Acute (2) Hematochezia: Problem comment: - follow Hgb Status: Acute Plan - per above - likely home 1-2 days - updated bedside, questions answered Hospitalist- H&P: HPI History of Present Illness Date Seen: 02/25/25 Chief complaint: Abdominal pain, bloody stool Narrative: Una Alvarez is a 45 year old female presented to the ER this morning for abdominal pain and hematochezia. She started having fairly severe abdominal cramping last evening; he was so intense that she had to lay on the floor for a short time. She had multiple episodes of diarrhea overnight (was unable to see if there was any blood in the dark), this morning, noted hematochezia. Associated nausea, no vomiting. No fevers. No recent travel, no recent antibiotics, no offending foods. Her mother recently had diarrhea. Family history of Crohn's disease. Has had 2 colonoscopies without concerning findings, most recently 01/2024. Follows with [place] [facility] for history of polyps and IBS symptoms. ER course and findings: - Hgb 13.7, WBC 14 with PMN predominance, normal K, Na of 132 - HR 90s, BP 138/80 - CT revealed mild to moderate submucosal edema of descending and sigmoid colon with mesenteric edema, consistent with infectious or inflammatory proctocolitis Histories reviewed and updated below. Dr. Jones is PCP. Review of Systems Status of ROS: Reports: 10 or more systems reviewed and unremarkable except as noted in History and below Medical Decision Making Medical Decision Making Code Status: Full Has patient completed a Health Care Directive: No During This Stay, Who Would You Like To Make Decisions For You In The Event You Are Unable To Make Them For Yourself?: [facility] Medical History (Updated 02/25/25 @ 13:11 by Rebecca Jordan MD) Headache ?R51.9 - Headache, unspecified (ICD-10) Postconcussive syndrome ?F07.81 - Postconcussional syndrome (ICD-10) Sinus congestion ?R09.81 - Nasal congestion (ICD-10) GERD (gastroesophageal reflux disease) ?K21.9 - Gastro-esophageal reflux disease without esophagitis (ICD-10) Breast pain, left ?N64.4 - Mastodynia (ICD-10) Folliculitis ?L73.9 - Follicular disorder, unspecified (ICD-10) Obesity (BMI 30.0-34.9) ?E66.9 - Obesity, unspecified (ICD-10) Family History (Updated 02/25/25 @ 12:52 by Rebecca Jordan MD) Other Crohn's disease Social History (Updated 02/25/25 @ 12:52 by Rebecca Jordan MD) Narrative: Lives with Dev in [place], he would be MDM if needed. Nonsmoker, social ETOH. Full Code What is your current living situation?: I presently have a place to live Problems where you live: no known problems In the past 12 months, utilities in danger of being shut off: no In past 12 months, lack of transportation kept you from medical appts, meetings, work, or getting things needed for daily living: no In the past 12 mos, have been you worried that your food would run out before you had money to buy more?: never true In the past 12 mos, the food you bought just didn't last and you didn't have money to buy more?: never true Highest level of school completed/degree received: Bachelor's degree Smoking Status: Never smoker Do you use any of these nicotine containing products: None Second hand tobacco smoke exposure: No How often do you have a drink containing alcohol: 2-3 times a week How many standard drinks containing alcohol do you have on a typical day: 1 or 2 How often do you have six or more drinks on one occasion: Never AUDIT-C Alcohol total score: 3 Non-prescribed substance use: denies use How often does anyone, including family, friends and others, physically hurt you: never How often does anyone, including family, friends and others, insult or talk down to you: never How often does anyone, including family, friends and others, threaten you with harm: never How often does anyone, including family, friends and others, scream or curse at you: never service: No Meds Home Medications and Allergies Home Medications ?Medication ?Instructions ?Recorded ?Confirmed ?Type escitalopram oxalate 20 mg tablet 20 mg PO DAILY 10/11/21 02/25/25 History (Lexapro) norethindrone acetate 1 mg-ethinyl 1 tab PO DAILY 10/11/21 02/25/25 History estradiol 20 mcg tablet (Junel) escitalopram oxalate 10 mg tablet 10 mg PO DAILY 05/02/23 02/25/25 History sumatriptan succinate 50 mg tablet 50 mg PO Q2H PRN 05/02/23 02/25/25 History buspirone 15 mg tablet 15 mg PO BID 06/16/24 02/25/25 History hyoscyamine sulfate 0.125 mg 0.125 mg sublingual Q4H PRN 06/16/24 02/25/25 History sublingual tablet nortriptyline 10 mg capsule 10 mg PO HS 06/16/24 02/25/25 History Allergies Allergy/AdvReac Type Severity Reaction Status Date / Time Sulfa (Sulfonamide Allergy Unknown unknown Verified 02/25/25 09:12 Antibiotics) latex Allergy Verified 02/25/25 09:12 Exam Narrative: Exam Narrative: GEN: Alert HEENT: EOMIs bilaterally, no scleral icterus CV: RRR, No concerning murmurs, rubs, or gallops R: LCTA bilaterally Ab: Soft, no concerning distention, tolerates palpation but uncomfortable, + bowel sounds Ext: wwp, no concerning edema Skin: No concerning skin lesions or rashes on exposed skin Neuro: Nonfocal Psych: Appropriate Const: Vital Signs, click to edit/add: Vital Signs - 24 hr 02/25/25 09:03 02/25/25 09:56 02/25/25 11:05 Temperature 98.0 F 98.2 F Pulse Rate [Pulse Oximeter] 92 91 83 Respiratory Rate 16 20 16 Blood Pressure [Le ft Arm] 138/82 Blood Pressure [Ri ght Upper Arm] 117/81 130/75 Pulse Oximetry 97 94 98 Oxygen Delivery Me thod Room Air Room Air Room Air Hospitalist - H&P: Result Labs Labs: Short CBC 02/25/25 Range/Units 09:30 WBC 14.06 H (4.50-11.00) K/uL Hgb 13.7 (12.0-16.0) gm/dL Hct 40.4 (33.0-51.0) % Plt Count 359 (140-440) K/uL BMP 02/25/25 09:30 Sodium 132 L Potassium 4.1 Chloride 100 Carbon Dioxide 20 BUN 12 Creatinine 0.7 Glucose 112 Calcium 8.7 Liver Function 02/25/25 Range/Units 09:30 Total Bilirubin 0.7 (0.1-1.5) mg/dL AST 27 (12-35) U/L ALT 29 (4-35) U/L Alkaline Phosphatase 59 (40-150) U/L Albumin 4.3 (3.3-5.0) g/dL Urine 02/25/25 Range/Units 09:25 Urine Color Yellow (Yellow) Urine Appearance Clear (Clear) Urine pH 6.0 (5.0-8.5) Ur Specific [place] 1.025 (1.000-1.030) Urine Protein Negative (Negative) Urine Glucose (UA) Negative (Negative)
[2025-02-25] MEDS: PANTOPRAZOLE SODIUM 40 MG INJ IVP (12:35)
[2025-02-25 15:22] LABS: Hemoglobin* 13.5 gm/dL (12.0-16.0)
[2025-02-25 15:30] VITALS: BP 132/63; PULSE 97; RESP 16; TEMP 36.7; O2SAT 94
--- NOTE | 2025-02-25 18:15 | PC.NURSE ---
end of shift. pt has been very pleasant. abd pain on and off. she got Iv morphine 1 time. she is up ab rikki she is voiding 600-900 each time. small amount of liquid blood output from rectum
[2025-02-25 19:35] VITALS: BP 119/75; PULSE 89; RESP 16; TEMP 37; O2SAT 98
[2025-02-25] MEDS: BUSPIRONE 10 MG TABLET 15 MG PO (20:49)
[2025-02-25 22:37] LABS: C.Difficile Negative (Negative); CDIFFEPI 027 PRESUMPTIVE NEGATIVE (Negative)
[2025-02-26 00:09] VITALS: BP 112/70; PULSE 91; RESP 16; TEMP 36.8; O2SAT 94
[2025-02-26 04:54] VITALS: BP 112/73; PULSE 81; RESP 16; TEMP 36.8; O2SAT 94
--- NOTE | 2025-02-26 06:10 | PC.NURSE ---
End of shift [id number]: Pt AxOx3, cooperative, and pleasant with cares. Pt reports abdomen pain that comes and goes with activity, PRN medication given. Pt indep in room using bathroom frequently. Bloody/diarrhea stools x2 throughout the shift. Pt denies nausea. Fluids infusing @ 125 ml/hr. Tolerating clear liquid diet well. Call light within reach.
[2025-02-26 06:52] LABS: Hematocrit* 37.4 % (33.0-51.0); Hemoglobin* 12.1 gm/dL (12.0-16.0); Immature Granulocytes Abs Auto 0.02 K/uL (0.00-0.30); Immature Granulocytes Pct Auto 0.2 %; Lymphocytes Absolute Auto 2.55 K/uL (0.90-2.90); Mean Corpuscular HGB Conc 32 gm/dL (32-36); Mean Corpuscular Hemoglobin 30 pg (26-34); Mean Corpuscular Volume 92 fL (80-100); RDW Coefficient of Variation % 12.9 % (11.5-15.5); Red Blood Count* 4.05 m/uL (4.00-5.20); White Blood Count* 8.44 K/uL (4.50-11.00)
[2025-02-26 07:09] LABS: Albumin* 3.4 g/dL (3.3-5.0); Chloride* 106 mmol/L (96-114); Potassium* 3.8 mmol/L (3.6-5.1); Sodium* 134 mmol/L (135-149)
[2025-02-26 07:12] LABS: Alanine Aminotransferase* 20 U/L (4-35); Alkaline Phosphatase* 45 U/L (40-150); Anion Gap 7 mEq/L (7-15); Aspartate Amino Transferase* 28 U/L (12-35); Bilirubin Total* 0.8 mg/dL (0.1-1.5); Blood Urea Nitrogen* 5 mg/dL (5-24); Carbon Dioxide* 21 mmol/L (20-32); Creatinine* 0.6 mg/dL (0.5-1.5); Est. Creatinine Clearance* 112.01; Estimated Glomerular Filt Rate 113 ml/min; Total Protein* 5.7 g/dL (6.0-8.3)
[2025-02-26 07:13] LABS: Calcium* 7.5 mg/dL (8.4-10.6); Glucose* 98 mg/dL (60-115)
[2025-02-26 07:27] LABS: Slide Review Acceptable Review (Acceptable); Slide Review Reflex Yes
[2025-02-26 09:10] VITALS: BP 120/75; PULSE 81; PULSE 86; RESP 16; TEMP 36.8; O2SAT 95
[2025-02-26] MEDS: PANTOPRAZOLE SODIUM 40 MG INJ IVP (09:30)
[2025-02-26] MEDS: ESCITALOPRAM 10 MG TABLET 30 MG PO (09:30)
[2025-02-26] MEDS: BUSPIRONE 10 MG TABLET 15 MG PO (09:31)
[2025-02-26] MEDS: ACETAMINOPHEN 325 MG TABLET 975 MG PO (09:31)
[2025-02-26] MEDS: NORTRIPTYLINE 10 MG CAPSULE PO (10:39)
[2025-02-26 11:22] VITALS: BP 115/75; PULSE 87; RESP 18; TEMP 36.8; O2SAT 93
[2025-02-26 12:31] LABS: Hemoglobin* 12.6 gm/dL (12.0-16.0)
--- NOTE | 2025-02-26 16:05 | PM.DS1 ---
DS: Providers Provider Time Seen by Provider: 09:20 Date Seen: 02/26/25 Date of admission: 02/25/25 10:46 Primary care physician: Deacon Jones MD Admitting Clinician: Rebecca Jordan MD Attending Physician on discharge: Jaim Caro MD Date of Discharge: 02/26/25 DS: Diagnosis Discharge Diagnosis (1) Colitis: Status: Acute Problem details: - with associated diarrhea - stool studies, C-Diff - clear liquid diet, IV pain management and anti-emetics - ADAT - patient will call [facility] for close outpatient f/u given new colitis and family history of IBD - 02/26 a few liquidy BMs overnight and 1 this morning, associated with cramping. The amount of blood in them is lessening and becoming less bright red. Hemoglobin is stable. C diff is negative. Other stool studies are pending. She was able to advance to a regular diet and tolerated that well today. She has had no more bowel movements since the one this morning. Feeling it overall improved, discharge home, follow-up with GI this week, bland diet and omeprazole twice a day in the meantime. Recommended returning for worsening symptoms, fever, increasing amounts of blood in the stool, feelings of lightheadedness, dizziness, shortness of breath or chest pain. (2) Hematochezia: Status: Acute Problem details: - improving, hemoglobin stable. DS: Summary Hospital Course Hospital Course: Per H&P: Una Alvarez is a 45 year old female presented to the ER this morning for abdominal pain and hematochezia. She started having fairly severe abdominal cramping last evening; he was so intense that she had to lay on the floor for a short time. She had multiple episodes of diarrhea overnight (was unable to see if there was any blood in the dark), this morning, noted hematochezia. Associated nausea, no vomiting. No fevers. No recent travel, no recent antibiotics, no offending foods. Her mother recently had diarrhea. Family history of Crohn's disease. Has had 2 colonoscopies without concerning findings, most recently 01/2024. Follows with [place] [facility] for history of polyps and IBS symptoms. ER course and findings: - Hgb 13.7, WBC 14 with PMN predominance, normal K, Na of 132 - HR 90s, BP 138/80 - CT revealed mild to moderate submucosal edema of descending and sigmoid colon with mesenteric edema, consistent with infectious or inflammatory proctocolitis Did well overnight, hemoglobin has remained stable, tolerated general diet today. Further details as above in diagnoses. Discharge home in improved condition. Time Spent with Patient Time attestation: Total time spent providing and/or coordinating discharge services: Today I spent 50 minutes seeing the patient 3 different times today, discussing with the patient and her , reviewing Expanse and EPIC notes/diagnostics/labs, discussing the care plan with our care team that includes social work, PT/OT, pharmacy, RT, long-term and documenting my impressions and plan in the medical record. Exam Narrative: Exam Narrative: General: No acute distress. Awake, alert, oriented x3. No pallor. No jaundice. Oropharynx: Clear. Mucous membranes moist. Cardiovascular: Regular rate and rhythm. No murmurs, gallops, or rubs. Respiratory: Clear to auscultation bilaterally. No wheezes or crackles. Abdomen: Bowel sounds present. Soft, nondistended, nontender. Extremities: No lower extremity edema. Const: Vital Signs, click to edit/add: Vital Signs - 24 hr 02/25/25 19:35 02/26/25 00:09 02/26/25 04:54 Temperature 98.6 F 98.3 F 98.3 F Pulse Rate [Pulse Oximeter] 89 91 81 Respiratory Rate 16 16 16 Blood Pressure [Le ft Arm] 119/75 112/70 112/73 Pulse Oximetry 98 94 94 Oxygen Delivery Me thod Room Air Room Air Room Air 02/26/25 09:10 02/26/25 09:10 02/26/25 11:22 Temperature 98.3 F 98.3 F Pulse Rate [Pulse Oximeter] 81 86 87 Respiratory Rate 16 16 18 Blood Pressure [Le ft Arm] 120/75 115/75 Pulse Oximetry 95 93 Oxygen Delivery Me thod Room Air Room Air DS: Data Data Completed and Pending Completed studies during hospitalization: Ordering Physician: Aaron Ayala M.D. Date of Service: 02/25/25 Procedure(s): CT abdomen pelvis w con Accession Number(s): [id number] cc: Deacon Jones M.D.; Aaron Ayala M.D.~ For Patients: As a result of the 21st Century Cures Act, medical imaging exams and procedure reports are released immediately into your electronic medical record. You may view this report before your referring provider. If you have questions, please contact your health care provider. INDICATION: Abd pain and rectal bleeding TECHNIQUE: CT of the abdomen and pelvis was obtained with 97 mL of Isovue 370 intravenous contrast. Please note that all CT scans at this facility use dose modulation, iterative reconstruction, and/or weight-based dosing when appropriate to reduce radiation dose to as low as reasonably achievable. COMPARISON: None. FINDINGS: Lower thorax: Normal. Liver and biliary tree: Normal. Gallbladder: Normal. Spleen: Normal. Pancreas: Normal. Adrenal glands: Normal. Kidneys and ureters: No hydronephrosis or obstructing renal calculi. Gastrointestinal tract: Zzyq-vy-hqmvinii submucosal edema of the descending colon and to a lesser extent of the sigmoid colon and rectum. Status post appendectomy. No evidence of bowel obstruction. Peritoneal cavity: Mild fat stranding and mesenteric edema surrounding the descending colon. Bladder: Underdistended. Moderate wall thickening. Pelvic organs: Normal. Vasculature: Normal. Lymph nodes: Normal. Abdominal wall: Normal. Musculoskeletal: Normal. IMPRESSION: 1. Mild to moderate submucosal edema of the descending colon and to a lesser extent of the sigmoid colon and rectum with mild surrounding fat stranding and associated mesenteric edema. Findings are compatible with infectious or inflammatory proctocolitis. 2. Moderate urinary bladder wall thickening may be accentuated by underdistention. Consider correlation with urinalysis to assess for infection. Please note that all CT scans at this facility use dose modulation, iterative reconstruction, and/or weight-based dosing when appropriate to reduce radiation dose to as low as reasonably achievable. Dictated by Phill Fernandez MD @ 02/25/2025 10:11:14 AM (Electronically Signed) Labs on day of discharge: Labs from last 24 hours 02/26/25 02/26/25 02/25/25 12:15 06:25 21:30 WBC 8.44 RBC 4.05 Hgb 12.6 12.1 Hct 37.4 MCV 92 MCH 30 MCHC 32 RDW Coeff of Mir 12.9 Plt Count 203 Neut % (Auto) 62.4 Lymph % (Auto) 30.2 [place] % (Auto) 5.6 Eos % (Auto) 1.4 Baso % (Auto) 0.2 Neut # (Auto) 5.26 Lymph # (Auto) 2.55 [place] # (Auto) 0.50 Eos # (Auto) 0.12 Baso # (Auto) 0.02 Abs Immat Gran (auto) 0.02 Imm/Tot Granulo (auto) 0.2 Diff Slide Review Acceptable Review Sodium 134 L Potassium 3.8 Chloride 106 Carbon Dioxide 21 Anion Gap 7 BUN 5 Creatinine 0.6 Estimated Creat Clear 112.01 Estimated GFR 113 Glucose 98 Calcium 7.5 L Total Bilirubin 0.8 AST 28 ALT 20 Alkaline Phosphatase 45 Total Protein 5.7 L Albumin 3.4 Stl C. cayetanensis PCR Pending Stool Rotavirus A PCR Pending Stool Adenovirus (PCR) Pending Stool Astrovirus (PCR) Pending Stool Campylobacter PCR Pending Stl C. diff Tox B Gene Negative Stl C. diff [id number] PRESUMPTIVE NEGATIVE Stool Cryptosporidium PCR Pending Stl E.coli Shiga Tox PCR Pending Stool E coli O157 PCR Pending Stl Enterotoxigenic E PCR Pending Stool EPEC (PCR) Pending Stool EAEC (PCR) Pending Stl E. histolytica PCR Pending Stool Giardia Lamblia PCR Pending Stl P. shigelloides PCR Pending Stool Salmonella PCR Pending Stool Sapovirus (PCR) Pending Stl Shigella/EIEC PCR Pending St Y.enterocolitica PCR Pending Stool Vibrio (PCR) Pending Stl Vibrio cholerae PCR Pending Stl Norovirus GI/GII PCR Pending Discharge Plan Discharge Disposition: Home, Self-Care Date of Admission: 02/25/25 10:46 Attending Provider on Discharge: Jami Caro Primary Care Provider: Deacon Jones Condition: Stable Anticipated Discharge Date/Time: 02/26/25 16:14 Discharge Medications: New omeprazole 20 mg tablet,delayed release (DR/EC) 20 mg PO BID 14 Days Qty: 28 0RF oxycodone 5 mg tablet 5 mg PO Q6H MDD 15 mg PRN (Reason: pain) Qty: 5 0RF Continued norethindrone ac-eth estradiol [04/12 ()] 1-20 mg-mcg tablet 1 tab PO DAILY escitalopram oxalate [Lexapro] 20 mg tablet 20 mg PO DAILY Patient Comments: TOTAL DOSE = 30MG escitalopram oxalate 10 mg tablet 10 mg PO DAILY Patient Comments: TOTAL DOSE = 30MG sumatriptan succinate 50 mg tablet 50 mg PO Q2H PRN buspirone 15 mg tablet 15 mg PO BID nortriptyline 10 mg capsule 10 mg PO HS hyoscyamine sulfate 0.125 mg tablet, sublingual 0.125 mg sublingual Q4H PRN Discharge Orders: Discharge Order (Routine); Ordered 02/26/25 Ordered By: Jami Caro Additional Instructions: [facility] friday Activity Level: No Restrictions Discharge Diet: Low Fiber and Other Diet Detail: bland Follow Up Appointments: Deacon Jones MD [Primary Care Provider, Family Practice] Referral Note: 1 week, prn Forms: [employer] Info Instructions
[2025-02-26 16:17] VITALS: BP 131/81; PULSE 87; PULSE 90; RESP 18; TEMP 36.6; O2SAT 96
--- NOTE | 2025-02-26 16:57 | PC.NURSE ---
End of shift pt has been very pleasant. she is AxOx4. Pt reports abdomen pain that comes and goes with activity, PRN medication given. she is up ab rikki. in room using bathroom frequently. Bloody/diarrhea stools x2 throughout the shift. no narcs for pain. she is eating, drinking and voiding. Fluids infusing @ 125 ml/hr. where d/c Tolerating regular Call light within reach. went over discharge packet with pt. went over medications. appointments, instructions and educations. SL was d/c intact. she walked out with all paper work and belongings
[2025-02-28 21:47] LABS: Campylobacter PCR Not Detected; Enteroaggregative E coli PCR Not Detected; Enteropathogenic E coli PCR Not Detected; Enterotoxigenic E coli PCR Not Detected; Plesiomonas shig PCR Not Detected; Shiga toxin E coli PCR Not Detected
== END 2025-02-26 17:00 | disposition home or self-care (01) ==
LOC: ED 10:30 → MEDSURG 10:48
PROVIDERS: Family Medicine; Admitting Provider Family Medicine; Emergency Provider Internal Medicine; PCP Family Medicine; Visit Provider Family Medicine
DX: K52.9 Noninfective gastroenteritis and colitis, unspecified (principal); K92.1 Melena
CPT/HCPCS: 36415; 74177; 80053; 81003; 83605; 83690; 85018; 85025; 85610; 85730; 87493; 87507; 96374; 96375; 99284; 99285; A9270; G0378; J2270; J2470; J7030; Q9967

== ENCOUNTER 2025-03-08 08:56 | Outpatient (CLI) | payer OTHER, SELFPAY | END 2025-03-08 08:57 | disposition home or self-care (01) | PROVIDERS: PCP Family Medicine; Visit Provider Family Medicine | DX: K52.9 Noninfective gastroenteritis and colitis, unspecified (principal); E78.1 Pure hyperglyceridemia; R10.9 Unspecified abdominal pain; Z78.9 Other specified health status; E10.9 Type 1 diabetes mellitus without complications | CPT/HCPCS: 80048; 80061; 82306; 82607; 86140; 86803 ==